=== PATIENT | female | born 1940 | race Caucasian/White ===

== ENCOUNTER 2023-02-01 11:00 | Outpatient (RCR) | payer MEDICARE, SELFPAY ==
--- NOTE | 2023-02-01 11:45 | MHC.OT.DC ---
[address] [phone] F: [phone] Occupational Therapy Discharge Note Patient Name: Lily Rodriguez Provider: Teetee Albarran Diagnosis: Left DR hayden Date of Surgery: Date of Evaluation: 01/23/23 Date of Discharge: 02/01/23 Treatments to Date: 2 Cancellations to Date: 0 No Shows to Date: 0 Discharge Status: Achieved Goals Improved Function Independent with HEP Discharge Summary: Pt is independent with her HEP strengthening program and reports improved pain and function. She has resumed gardening with full use of her left hand. Pt reports she feels confident she will continue to increase in strength with her HEP Goals met Electronically Signed By: Basia Ely OT CHT CLT Reviewed/agree with student documentation: Therapist: Please Sign and return to therapist, thank you for your referral.
== END 2023-02-01 11:46 | disposition home or self-care (01) ==
LOC: HO.OT 11:00
PROVIDERS: Visit Provider Physician Assistant
DX: S52.502D Unspecified fracture of the lower end of left radius, subsequent encounter for closed fracture with routine healing (principal)
CPT/HCPCS: 97110; 97165

== ENCOUNTER 2023-10-01 09:07 | Inpatient (IN) | payer MEDICARE, SELFPAY ==
[2023-10-01] VITALS (11 sets, daily range): BP systolic 111–167; BP diastolic 60–103; PULSE 66–133; RESP 18–20; TEMP 36.6–36.8; O2SAT 96–99; BMI 22.5
--- NOTE | ~2023-10-01 | XR_ITS ---
EXAMINATION: XR CHEST CLINICAL INFORMATION: Shortness of breath COMPARISON: None available. TECHNIQUE: AP upright portable view of the chest was obtained. 11:13 AM FINDINGS: Lung volumes are low. No focal consolidation, interstitial pulmonary edema or pneumothorax. No pleural effusion Heart size is normal. No acute osseous abnormality. XR/XR chest 1V IMPRESSION: No acute cardiopulmonary disease.
--- NOTE | 2023-10-01 09:13 | ECG_ITS ---
Test Reason : afib? Blood Pressure : / mmHG Vent. Rate : 132 BPM Atrial Rate : 264 BPM P-R Int : 000 ms QRS Dur : 080 ms QT Int : 308 ms P-R-T Axes : 000 003 064 degrees QTc Int : 456 ms Atrial flutter with 2:1 A-V conduction Nonspecific ST abnormality Abnormal ECG When compared with ECG of 22-JUN-2013 06:52, Atrial flutter has replaced Sinus rhythm Vent. rate has increased BY 59 BPM Referred By: Generic ED Physician Electronically Signed By:LUIS ALBERTO MCMANUS MD
--- NOTE | 2023-10-01 10:39 | ED_ITS ---
HPI - Arrhythmia/Palpitations General Chief Complaint: Arrhythmia/Palpitations Stated Complaint: AFib Weakness Sent by PCP Time Seen by Provider: 10/01/23 10:06 Source: patient Mode of arrival: ambulatory Limitations: no limitations History of Present Illness HPI narrative: 83-year-old female history of AFib on Xarelto, presenting with some shortness of breath, lightheadedness and palpitations have been ongoing for the past week. Patient reports she is mostly active she walks about a mi a day, however the past week she has been having difficulty with this secondary to palpitations, lightheadedness and shortness of breath. She states she may be in AFib, this is never happened to her before was diagnosed last year. Denies associated chest pain, recent illness, nausea, vomiting, abdominal pain, headache, vision changes, dizziness and weakness. Med compliant. She does also take metoprolol. Related Data Home Medications Medication Instructions Recorded Confirmed calcium carbonate 600 mg calcium 600 mg PO DAILY 10/01/23 10/01/23 (1,500 mg) tablet (Calcium) cholecalciferol (vitamin D3) 50 50 mcg PO DAILY 10/01/23 10/01/23 mcg (2,000 unit) tablet (Vitamin D3) ketorolac 0.5 % eye drops 1 drp ophthalmic-Left DAILY 10/01/23 10/01/23 latanoprost 0.005 % eye drops 1 drp ophthalmic (eye) BEDTIME 10/01/23 10/01/23 levothyroxine 50 mcg tablet 50 mcg PO DAILY@0600 10/01/23 10/01/23 metoprolol succinate 25 mg 25 mg PO DAILY@1600 10/01/23 10/01/23 tablet,extended release 24 hr [id number] 8 mg-folic 400 1 tab PO DAILY 10/01/23 10/01/23 mcg-K 50 mcg-lutein 300 mcg tablet (Centrum Silver Women) rivaroxaban 20 mg tablet (Xarelto) 20 mg PO DAILY@1600 10/01/23 10/01/23 Allergies Allergy/AdvReac Type Severity Reaction Status Date / Time No Known Allergies Allergy Verified 10/01/23 09:30 Review of Systems 2 Review of Systems: Yes all other systems are reviewed and are negative PMFSH Past Medical History Attestation statement: The following information was validated with the patient. Source: old records reviewed and nursing notes reviewed Onset Date is defined in the Problem List Problems that require an onset date and time if occurred within 24 hrs of arrival to the ED Aortic Dissection and Rupture; Neurologic impairment; Cardiopulmonary Arrest; Endotracheal Intubation; Insertion or Replacement of Mechanical Circulatory Assist Device Social History Social History Smoked in Last 30 Days: No Use of substances other than those prescribed or required for medical reasons: No Advance Directives: Yes Advance Directives Information Provided: Yes Advance Directives on File: No Physical Exam 2 Vital Signs: Vital Signs: Last Vital Signs Temp 98 F 10/01/23 09:30 Pulse 131 H 10/01/23 13:48 Resp 20 10/01/23 13:48 BP 159/97 H 10/01/23 13:48 Pulse Ox 97 10/01/23 13:48 O2 Del Method Room Air 10/01/23 13:48 BMI result Body Mass Index 22.5 patient noted to be tachy and hTN Appearance: Alert.? Oriented X3.? No acute distress.? Head: Normocephalic, atraumatic, no step-offs or deformities Eyes: Pupils equal, round and reactive to light.? ENT: Pharynx normal.? Neck: Normal inspection.? Neck supple.? CVS: Rapid heart rate with a rate around 130 140 irregularly irregular rhythm..? Pulses equal and irregularly irregular.? Respiratory: No respiratory distress.? Breath sounds normal.? Abdomen: Soft and nontender.? Skin: Skin warm and dry.? Normal skin color.? Normal skin turgor.? Extremities: No lower extremity edema.? No calf ttp. 5/5 strength to bilateral upper and lower extremities Back: No midline tenderness, no C-spine tenderness, full range of motion, no CVA tenderness bilaterally Neuro: Oriented X 3.? No motor deficit.? No sensory deficit. CN 2-12 intact Course Reevaluation(s) Reevaluation #1: CBC with microcytic anemia, no reports of acute bleeding however, no previous labs to compare with. No blood in stool. Coags unremarkable. Chemistry pending. Cardizem given patients heart rate went from 133 bpm --> 62 bpm. Time: 10:52 Reevaluation #2: Repeat EKG w/ NSR. Patient feeling better. Cardiology aware of this. They will come down and talk to patient. Patient's heart rate increased again, Cardizem was ordered Time: 11:04 Reevaluation #3: Cardiology would like PRN cardizem if needed but would like Multaq PO BID hospital admission recommended. Patient aware. TT to hospitalist at this time. Time: 12:51 Medications Administered Discontinued Medications Generic Name Dose Route Start Last Admin Trade Name Freq PRN Reason Stop Dose Admin Diltiazem HCl 10 mg 10/01/23 10:13 10/01/23 10:49 Diltiazem Hcl 50 Mg/10 Ml Vial IVPUSH 10/01/23 10:14 10 mg STAT STA Administration Diltiazem HCl 10 mg 10/01/23 11:57 10/01/23 12:06 Diltiazem Hcl 50 Mg/10 Ml Vial IVPUSH 10/01/23 11:58 10 mg STAT STA Administration Dronedarone 400 mg 10/01/23 12:32 10/01/23 13:56 Dronedarone Hcl 400 Mg Tablet PO 10/01/23 12:33 400 mg ONCE ONE Administration Sodium Chloride 500 mls @ 500 mls/hr 10/01/23 12:00 10/01/23 13:36 Ns IV 10/01/23 12:59 Infused .Q1H JEREMIAS Infusion Medical Decision Making Medical Decision Making [facility] Narrative: 83-year-old female presents with palpitations and dizziness history of AFib on Xarelto Physical exam significant for Rapid heart rate with a rate around 130 140 irregularly irregular rhythm..? Pulses equal and irregularly irregular.? History and physical exam concerning for possible acute atrial fibrillation versus atrial flutter versus dysrhythmia. Unlikely PE she is anticoagulated. Unlikely ACS, dissection, pneumonia. Will rule out metabolic derangements although unlikely Plan labs, imaging, EKG. Differential Diagnosis Differential Diagnoses: The differential diagnosis associated with the presentation includes History and physical exam concerning for possible acute atrial fibrillation versus atrial flutter versus dysrhythmia. Unlikely PE she is anticoagulated. Unlikely ACS, dissection, pneumonia. Will rule out metabolic derangements although unlikely Admission/Observation Consideration of admission/observation: Escalation of care including admission/observation considered Possible Lab Data [facility] Lab Attestation statement: I reviewed the patient's lab results. 10/01/23 10:34 01/09/24 10:34 Labs: Lab Results 10/01/23 Range/Units 10:34 WBC 8.5 (4.8-10.8) X10*3/uL RBC 5.30 (4.20-5.50) X10*6/uL Hgb 10.2 L (12.0-16.0) g/dl Hct 33.0 L (37.0-47.0) % MCV 62.3 L (80.0-98.0) fL MCH 19.2 L (27.0-33.0) pg MCHC 30.9 L (31.0-35.0) g/dl RDW 17.4 H (11.0-16.0) % Plt Count 241 (160-400) X10*3/uL MPV 10.7 (9.4-12.3) fL Immature Gran % (Auto) 0.4 (0.0-0.4) % Neut % (Auto) 87.6 H (45-73) % Lymph % (Auto) 6.0 L (20-40) % [place] % (Auto) 5.1 (2-11) % Eos % (Auto) 0.5 (0-4) % Baso % (Auto) 0.4 (0-2) % Lymph # (Auto) 0.5 L (1.2-4.9) X10*3/uL [place] # (Auto) 0.4 (0.1-1.2) X10*3/uL Eos # (Auto) 0.0 (0.0-0.4) X10*3/uL Baso # (Auto) 0.0 (0.0-0.2) X10*3/uL Abs Immat Gran (auto) 0.03 (0.00-0.03) X10*3/uL Absolute Neuts (auto) 7.4 (2.0-8.3) x10*3/uL Absolute Nucleated RBC 0.000 (0.0-0.012) X10*3/uL Nucleated RBC % (auto) 0.0 (0.0-0.2) /100WBC PT 13.8 H (11.1-13.3) SEC INR 1.1 (0.9-1.1) D-Dimer High Sensitivty Cancelled Sodium 138 (135-145) mmol/L Potassium 4.4 (3.3-5.1) mmol/L Chloride 103 (96-108) mmol/L Carbon Dioxide 29 (22-29) mmol/L Anion Gap 10 L (12-20) BUN 24 H (9-16) mg/dL Creatinine 0.94 (0.5-1.4) mg/dL Estim Creat Clear Calc 31.4 Estimated GFR 57 Random Glucose 119 H (60-115) mg/dL Calcium 9.9 (8.4-10.2) mg/dL Magnesium 2.1 (1.6-2.6) mg/dL Total Bilirubin 0.6 (0.0-1.0) mg/dL AST 23 (5-31) U/L ALT 15 (0-31) U/L Alkaline Phosphatase 78 (39-117) U/L Troponin I High Sens 6.3 (<3.5-17.0) ng/L B-Natriuretic Peptide 317 H (<100) pg/mL Total Protein 7.8 (6.5-8.0) g/dL Albumin 4.4 (3.5-5.0) g/dL Independent Interpretation I performed an independent interpretation of an: EKG (Atrial flutter noted in a 2-1 fashion.) and Plain X-Ray Radiology Impression Discussion of test interpretation with radiology: I have reviewed the radiologist's reading. Chronic Conditions Patient?s care impacted by: Other (afib ) Critical Care Time Critical Care Time Critical Care Time: Yes Total Critical Care Time: 45 Attestation: I attest to this time spent taking care of the patient, obtaining history, physical, reviewing labs, imaging, speaking to my attending, speaking to specialist. Discharge Plan Discharge Clinical Impression: Atrial flutter, Hypertension Patient Disposition: Admitted As Inpatient Additional Instructions: Take your medications as prescribed. If you were prescribed antibiotics today, it is important that you take your medication to their entirety, do not skip any doses, do not finish them early. Follow-up with your primary care provider this week. Return to the emergency department with new or worsening symptoms. Such as fevers, chills, chest pain, shortness of breath, nausea, vomiting, dizziness, headache, vision changes, lethargy In case of emergency call 911
[2023-10-01 10:40] LABS: MANUAL DIFF FLAG NO
[2023-10-01 10:45] LABS: Basophils Percent Auto 0.4 % (0-2); Eosinophils Percent Auto 0.5 % (0-4); Hemoglobin 10.2 g/dl (12.0-16.0); Imm Gran Abs Auto 0.03 X10*3/uL (0.00-0.03); Imm Gran Pct Auto 0.4 % (0.0-0.4); Lymphocytes Absolute Auto 0.5 X10*3/uL (1.2-4.9); Mean Corpuscular HGB Conc 30.9 g/dl (31.0-35.0); Mean Corpuscular Hemoglobin 19.2 pg (27.0-33.0); Mean Corpuscular Volume 62.3 fL (80.0-98.0); Mean Platelet Volume 10.7 fL (9.4-12.3); Monocytes Absolute Auto 0.4 X10*3/uL (0.1-1.2); Monocytes Percent Auto 5.1 % (2-11); Neutrophils Absolute Auto 7.4 x10*3/uL (2.0-8.3); Neutrophils Percent Auto 87.6 % (45-73); Platelet Count 241 X10*3/uL (160-400); Red Cell Distribution Width 17.4 % (11.0-16.0); White Blood Count 8.5 X10*3/uL (4.8-10.8)
[2023-10-01 10:47] LABS: INTERNATIONAL NORM RATIO 1.1 (0.9-1.1); Prothrombin Time 13.8 SEC (11.1-13.3)
[2023-10-01] MEDS: dilTIAZem HCL 50 MG/10 ML VIAL 10 MG IVPUSH ×3 (10:49→15:05)
[2023-10-01 11:10] LABS: Alanine Aminotransferase 15 U/L (0-31); Albumin Level 4.4 g/dL (3.5-5.0); Alkaline Phosphatase 78 U/L (39-117); Anion Gap 10 (12-20); Aspartate Amino Transferase 23 U/L (5-31); Bilirubin Total 0.6 mg/dL (0.0-1.0); Blood Urea Nitrogen 24 mg/dL (9-16); Calcium 9.9 mg/dL (8.4-10.2); Carbon Dioxide 29 mmol/L (22-29); Chloride 103 mmol/L (96-108); Creatinine Clr Calc Pharmacy 31.4; Estimated Glomerular Filt Rate 57; Glucose Random 119 mg/dL (60-115); Magnesium 2.1 mg/dL (1.6-2.6); Potassium 4.4 mmol/L (3.3-5.1); Sodium 138 mmol/L (135-145); Total Protein 7.8 g/dL (6.5-8.0)
[2023-10-01 11:12] LABS: Troponin-I High Sensitivity 6.3 ng/L (<3.5-17.0)
[2023-10-01 11:21] LABS: B Type Natriuretic Peptide 317 pg/mL (<100)
[2023-10-01] MEDS: 0.9 % Sodium Chloride 500 ML IV (12:07)
--- NOTE | 2023-10-01 12:10 | PC.NURSE ---
Pt given additional Cardizem 10mg IVP, HR back up to 120s. Pt states SOB is mild compared to on arrival and reports some lightheadedness. Denies CP or palpitations. SKin pwd. Breathing is even and unlabored. Awaits cardio consult.
--- NOTE | 2023-10-01 13:35 | P.CONCA_ITS ---
History of Present Illness History of Present Illness Date of Service: 10/01/23 Requesting physician: Ronen Gomez Consult reason: atrial fibrillation Chief complaint: AFib Weakness Sent by PCP Narrative: I was consulted to see Kirsten Vegas in cardiology consultation today for symptomatic atrial fibrillation. She is a pleasant and active 83-year-old woman with prior history of hypertension for long time last year was admitted to [facility] with fall related lightheadedness and question syncope associated with a fracture. She was subsequently treated for that and developed atrial fibrillation. At that time she was on metoprolol amlodipine and amlodipine was discontinued and she was started on initially Eliquis but did not tolerated and subsequently switched to Xarelto 20 mg daily. She has been maintained on metoprolol 25 mg daily. For about a week she has been having symptoms of rapid heart rate she noted with her blood pressure monitoring. She also noted associated with it symptoms of rapid heart rate and strong heartbeat associated with lightheadedness. She has not had any recurrent syncopal episodes. Symptoms persistent therefore she came to the emergency room. Initially when she came to the emergency room her EKG was suggestive atrial flutter with 2 is to 1 conduction with rapid ventricular rate. She was subsequently given IV Cardizem and felt that she converted to sinus rhythm although repeat EKG is most suggestive of atrial flutter with controlled ventricular response. She subsequently the rapid heart rate and symptoms associated with it. Cardiology consult was sought in the ED. She remains hypertensive in the ED. Denies any chest pain or shortness of breath. No orthopnea, PND. No syncopal episodes. She has been religiously taking a Xarelto every day. Review of Systems 2 Constitutional: Constitutional: Reports no additional constitutional complaints Eyes: Eyes: Reports no additional eye complaints Cardiovascular: Cardiovascular: Denies chest pain, Denies leg edema, Reports lightheadedness, Denies Loss of Consciousness, Reports palpitations and Denies dyspnea Respiratory: Respiratory: Reports no additional respiratory complaints and Denies dyspnea Gastrointestinal: Gastrointestinal: Reports no additional gastrointestinal complaints Genitourinary: Genitourinary: Reports no additional female genitourinary complaints Musculoskeletal: Musculoskeletal: Reports no additional musculoskeletal complaints Neurologic: Reports system reviewed and no additional complaints, except as documented Psychiatric: Psychiatric: Reports no additional psychiatric complaints Endocrine: Endocrine: Reports palpitations PMFSH Social History Social History Smoked in Last 30 Days: No Use of substances other than those prescribed or required for medical reasons: No Advance Directives: Yes Advance Directives Information Provided: Yes Advance Directives on File: No Meds Allergies Allergy/AdvReac Type Severity Reaction Status Date / Time No Known Allergies Allergy Verified 10/01/23 09:30 Active Medications: Current Medications Dronedarone (Dronedarone Hcl 400 Mg Tablet) 400 mg PO BID JEREMIAS Home Medications Medication Instructions Recorded Confirmed Last Taken Type calcium carbonate 600 mg calcium 600 mg PO DAILY 10/01/23 10/01/23 09/30/23 History (1,500 mg) tablet (Calcium) cholecalciferol (vitamin D3) 50 50 mcg PO DAILY 10/01/23 10/01/23 09/30/23 History mcg (2,000 unit) tablet (Vitamin D3) ketorolac 0.5 % eye drops 1 drp ophthalmic-Left DAILY 10/01/23 10/01/23 09/30/23 History latanoprost 0.005 % eye drops 1 drp ophthalmic (eye) BEDTIME 10/01/23 10/01/23 09/30/23 History levothyroxine 50 mcg tablet 50 mcg PO DAILY@0600 10/01/23 10/01/23 10/01/23 History metoprolol succinate 25 mg 25 mg PO DAILY@1600 10/01/23 10/01/23 09/30/23 History tablet,extended release 24 hr mqulwsiu-bogj-bzzz 8 mg-folic 400 1 tab PO DAILY 10/01/23 10/01/23 09/30/23 History mcg-K 50 mcg-lutein 300 mcg tablet (Centrum Silver Women) rivaroxaban 20 mg tablet (Xarelto) 20 mg PO DAILY@1600 10/01/23 10/01/23 09/30/23 History Physical Exam 2 Vital Signs: Vital Signs: Last Vital Signs Temp 98 F 10/01/23 09:30 Pulse 124 H 10/01/23 12:07 Resp 20 10/01/23 12:07 BP 148/103 H 10/01/23 12:07 Pulse Ox 99 10/01/23 12:07 O2 Del Method Room Air 10/01/23 12:07 BMI result Body Mass Index 22.5 Const: General: cooperative, comfortable, no acute distress, alert, awake and anxious Nutritional Appearance: thin Orientation/consciousness: patient oriented x3 Limitations: no limitations HEENT: Head: Yes normocephalic and Yes atraumatic Neck: Neck: Yes trachea midline, Yes supple and Yes no JVD Resp: Effort & Inspection: normal respiratory effort Auscultation: clear to auscultation bilaterally Cardio: Jugular venous distension: no JVD Rate: tachycardic Rhythm: a bnormal rhythm irregularly irregular Heart sounds: S1 normal heart sound present, S2 normal heart sound present, no click, no gallops, no murmurs and no rubs GI: Auscultation: normal bowel sounds Skin: General skin exam: no rashes or lesions noted Neuro: General: patient oriented x3 and no focal motor deficits Extrem: General: Yes no clubbing, cyanosis or edema Objective Labs and Meds 10/01/23 10:34 10/01/23 10:34 Lab results: Laboratory Results - last 24 hr 10/01/23 10:34 WBC 8.5 RBC 5.30 Hgb 10.2 L Hct 33.0 L MCV 62.3 L MCH 19.2 L MCHC 30.9 L RDW 17.4 H Plt Count 241 MPV 10.7 Immature Gran % (Auto) 0.4 Neut % (Auto) 87.6 H Lymph % (Auto) 6.0 L [place] % (Auto) 5.1 Eos % (Auto) 0.5 Baso % (Auto) 0.4 Lymph # (Auto) 0.5 L [place] # (Auto) 0.4 Eos # (Auto) 0.0 Baso # (Auto) 0.0 Abs Immat Gran (auto) 0.03 Absolute Neuts (auto) 7.4 Absolute Nucleated RBC 0.000 Nucleated RBC % (auto) 0.0 PT 13.8 H INR 1.1 D-Dimer High Sensitivty Cancelled Sodium 138 Potassium 4.4 Chloride 103 Carbon Dioxide 29 Anion Gap 10 L BUN 24 H Creatinine 0.94 Estim Creat Clear Calc 31.4 Estimated GFR 57 Random Glucose 119 H Calcium 9.9 Magnesium 2.1 Total Bilirubin 0.6 AST 23 ALT 15 Alkaline Phosphatase 78 Troponin I High Sens 6.3 B-Natriuretic Peptide 317 H Total Protein 7.8 Albumin 4.4 Imaging Radiologist's impression: Impressions Chest X-Ray 10/01/23 11:16 IMPRESSION: No acute cardiopulmonary disease. Assessment and Plan (1) Atrial fibrillation with rapid ventricular response: Status: Acute Patient present with recent onset recurrent atrial fibrillation rapid ventricular response most likely persistent over the last week or 2. No unsure whether she was converted back into normal sinus rhythm in between. No overt signs of heart failure although appears to be clinically very symptomatic related to it. Heart rate improved with IV Cardizem although has climbed back up again and was given another Cardizem with better rate control. For now I think given her symptoms she would benefit from rhythm control approach. Will start on Multaq 400 mg b.i.d. given that she has no signs or symptoms of heart failure with no prior history of LV systolic dysfunction. Hopefully this will get her back into sinus rhythm. If she remains in atrial fibrillation, will pursue synchronized cardioversion tomorrow. This was discussed with her in details. Management plan was discussed. She understands agrees. Can use IV Cardizem p.r.n. for better rate control. Stop metoprolol and switch to amlodipine 2.5 mg daily for blood pressure control. Continue oral anticoagulation with Xarelto at this point time. Patient needs to be admitted inpatient. Will follow with her Procedures Date of Service Date of Service: 10/01/23
--- NOTE | 2023-10-01 13:35 | PHA.MEDREC ---
Pharmacy Consult ? Medication Reconciliation Pharmacy has completed the medication reconciliation. Spoke to patient to confirm meds.
[2023-10-01] MEDS: Dronedarone HCl 400 MG TABLET PO ×2 (13:56→21:54)
--- NOTE | 2023-10-01 14:20 | ECG_ITS ---
Test Reason : AFIB Blood Pressure : / mmHG Vent. Rate : 066 BPM Atrial Rate : 000 BPM P-R Int : 000 ms QRS Dur : 080 ms QT Int : 408 ms P-R-T Axes : 000 -05 032 degrees QTc Int : 427 ms Poor data quality Possible Accelerated Junctional rhythm Abnormal ECG When compared with ECG of 01-OCT-2023 09:17, Accelerated Junctional rhythm has replaced Atrial flutter Vent. rate has decreased BY 66 BPM Referred By: Ronen Gomez Electronically Signed By:LUIS ALBERTO MCMANUS MD
--- NOTE | 2023-10-01 14:42 | PM.IMHP ---
History of Present Illness Date of Service: 10/01/23 Chief Complaint: Palpitations 83-year-old female patient with past medical history significant for atrial fibrillation on Xarelto, history of hypothyroidism, presented to [facility] due to symptoms of lightheadedness, shortness of breath and palpitation of 1 week duration, restricting her activity she denies a Surgi associated chest pain, no syncope, is compliant with home medications drinks 3 cup of coffee daily and 2 cups of decaf tea, denies alcohol ,no illicit drug use,, denies recent fever chills, no GI symptoms in the emergency room patient was noted in atrial flutter treated with IV Cardizem 10 mg heart rate improved to 62, but patient went back into atrial flutter with rapid rate receive 2nd dose of iv Cardizem 10 mg subsequently seen by cheese production supervisor Dr. Gray and started on Multaq 400 mg twice daily patient received 1 dose of Multaq and again noted to be in atrial flutter heart rate in 130s at present patient denies chest pain, no lightheadedness, no palpitations or shortness of breath he is being admitted to telemetry unit for continued monitoring of symptomatic atrial flutter, chest x-ray showed no acute infiltrate CBC and BMP unremarkable, BNP elevated but patient in no clinical CHF. Review of Systems Review of Systems: General no headache,no fever chills. CVS no chest pain, palpitation resolved . Respiratory no cough, no uri Gastrointestinal no nausea, no vomiting, no abdominal pain Skin no rash MSk no pain PMFSH Pertinent family history: Father at age 65 due to heart, no family history of cancer or premature coronary artery disease Social History Smoked in Last 30 Days: No Use of substances other than those prescribed or required for medical reasons: No Advance Directives: Yes Advance Directives Information Provided: Yes Advance Directives on File: No Meds Allergies Allergy/AdvReac Type Severity Reaction Status Date / Time No Known Allergies Allergy Verified 10/01/23 09:30 Active Medications: Current Medications Acetaminophen (Acetaminophen 325 Mg Tablet) 650 mg PO Q6H PRN PRN Reason: Pain, Mild (Pain Scale 1-3) Benzonatate (Benzonatate 100 Mg Capsule) 100 mg PO TID PRN PRN Reason: Cough Docusate Sodium (Docusate Sodium 100 Mg Capsule) 100 mg PO DAILY PRN PRN Reason: Constipation Dronedarone (Dronedarone Hcl 400 Mg Tablet) 400 mg PO BID [facility] Ketorolac Tromethamine (Ketorolac Tromethamine 0.5% Op 5 Ml Drops) 1 drop EYE-LEFT DAILY [facility] Latanoprost (Latanoprost 0.005 % Ophth Johnna 2.5 Ml Drops) 1 drop EYE-BOTH BEDTIME [facility] Levothyroxine Sodium (Levothyroxine Sodium 50 Mcg Tablet) 50 mcg PO DAILY@0600 [facility] Magnesium Hydroxide (Milk Of Magnesia 30 Ml Oral.Susp) 30 ml PO DAILY PRN PRN Reason: Constipation Melatonin (Melatonin 3 Mg Tablet) 3 mg PO BEDTIME PRN PRN Reason: Insomnia Multivitamins/Vitamin C (Multivitamin Tablet) 1 tab PO DAILY [facility] Ondansetron HCl (Ondansetron Hcl 4 Mg/2 Ml Vial) 4 mg IVPUSH Q8H PRN PRN Reason: Nausea and Vomiting Rivaroxaban (Rivaroxaban 20 Mg Tablet) 20 mg PO DAILY@1600 [facility] Sodium Chloride (0.9 % Sodium Chloride Flush 3 Ml Syringe) 3 ml IVFLUSH QSHIFT [facility] Vitamin D (Cholecalciferol (Vitamin D3) 25 Mcg Tablet) 50 mcg PO DAILY [facility] Home Medications Medication Instructions Recorded Confirmed Last Taken Type calcium carbonate 600 mg calcium 600 mg PO DAILY 10/01/23 10/01/23 09/30/23 History (1,500 mg) tablet (Calcium) cholecalciferol (vitamin D3) 50 50 mcg PO DAILY 10/01/23 10/01/23 09/30/23 History mcg (2,000 unit) tablet (Vitamin D3) ketorolac 0.5 % eye drops 1 drp ophthalmic-Left DAILY 10/01/23 10/01/23 09/30/23 History latanoprost 0.005 % eye drops 1 drp ophthalmic (eye) BEDTIME 10/01/23 10/01/23 09/30/23 History levothyroxine 50 mcg tablet 50 mcg PO DAILY@0600 10/01/23 10/01/23 10/01/23 History metoprolol succinate 25 mg 25 mg PO DAILY@1600 10/01/23 10/01/23 09/30/23 History tablet,extended release 24 hr [id number] 8 mg-folic 400 1 tab PO DAILY 10/01/23 10/01/23 09/30/23 History mcg-K 50 mcg-lutein 300 mcg tablet (Centrum Silver Women) rivaroxaban 20 mg tablet (Xarelto) 20 mg PO DAILY@1600 10/01/23 10/01/23 09/30/23 History Physical Exam Vital Signs and Narrative: Vital Signs: Last Vital Signs Temp 98 F 10/01/23 09:30 Pulse 131 H 10/01/23 13:48 Resp 20 10/01/23 13:48 BP 159/97 H 10/01/23 13:48 Pulse Ox 97 10/01/23 13:48 O2 Del Method Room Air 10/01/23 13:48 BMI result Body Mass Index 22.5 Const: Other: General awake alert x3, resting comfortably in no acute distress. Neck supple no JVD. CVS irregular rate rhythm, Respiratory lungs clear to auscultation, no respiratory distress, no wheeze, no rhonchi. Gastrointestinal abdomen soft, non tender, bowel sounds audible, no no guarding , no rigidity. Extremities no edema. Neuro nonfocal Skin no rash Psych appropriate affect Results Labs 10/01/23 10:34 10/01/23 10:34 Labs: Laboratory Results - last 24 hr 10/01/23 10:34 MCV 62.3 L MCH 19.2 L MCHC 30.9 L RDW 17.4 H Plt Count 241 MPV 10.7 Immature Gran % (Auto) 0.4 Neut % (Auto) 87.6 H Lymph % (Auto) 6.0 L [place] % (Auto) 5.1 Eos % (Auto) 0.5 Baso % (Auto) 0.4 Lymph # (Auto) 0.5 L [place] # (Auto) 0.4 Eos # (Auto) 0.0 Baso # (Auto) 0.0 Abs Immat Gran (auto) 0.03 Absolute Neuts (auto) 7.4 Absolute Nucleated RBC 0.000 Nucleated RBC % (auto) 0.0 PT 13.8 H INR 1.1 D-Dimer High Sensitivty Cancelled Anion Gap 10 L Estim Creat Clear Calc 31.4 Estimated GFR 57 Random Glucose 119 H Calcium 9.9 Magnesium 2.1 Total Bilirubin 0.6 AST 23 ALT 15 Alkaline Phosphatase 78 B-Natriuretic Peptide 317 H Total Protein 7.8 Albumin 4.4 Imaging Radiologist's Impressions: Impressions Chest X-Ray 10/01/23 11:16 IMPRESSION: No acute cardiopulmonary disease. Assessment and Plan (1) Atrial fibrillation with rapid ventricular response: Status: Acute (2) Hypertension: Status: Acute Plan 83-year-old female patient presented with symptoms of shortness of breath palpitations and lightheadedness and diagnosed to be in atrial fibrillation with rapid ventricular response will admit to telemetry unit. Symptomatic atrial fibrillation/flutter History of paroxysmal atrial fibrillation on Xarelto Treated with IV Cardizem 10 mg x3 dosages , noted to have persistent atrial fibrillation/continue Xarelto Will place on IV Cardizem drip, continue telemetry Seen by Cardiology started on Multaq 400 b.i.d. Follow electrolytes, TSH Cardioversion if noted to have persistent rapid ventricular rate. Hypothyroidism continue Synthroid check TSH Hypertension placed on IV Cardizem follow BP hold beta-blockers. Code status full code DVT prophylaxis on Xarelto In my clinical judgment patient need 2 night inpatient hospitalization for management of symptomatic atrial fib/flutter for close telemetry monitoring and possible cardioversion if Noted to have no response with medications. Quality Stroke Does the patient have a stroke diagnosis?: No VTE Prior VTE?: No VTE Risk Level:: Medical - moderate - high VTE Device Contraindication: Treatment Not Indicated VTE Drug Contraindication: N/A - Med Ordered
--- NOTE | 2023-10-01 15:07 | PC.NURSE ---
Pt reports no cp at this time, resting in stretcher, awaiting inpatient bed. hr 66 after admin of 10mg of dilt.
[2023-10-01 15:14] LABS: Thyroid Stimulating Hormone 2.59 uIU/mL (0.32-4.0)
[2023-10-01] MEDS: Rivaroxaban 20 MG TABLET PO (15:23)
[2023-10-01] MEDS: 0.9 % Sodium Chloride Flush 3 ML SYRINGE IVFLUSH (15:48)
--- NOTE | 2023-10-01 16:00 | PC.NURSE ---
Addendum entered by Karina Mcdaniels 10/01/23 19:09: Pt maintaining hr less than 120hr, dilt drip not started. Original Note: Pt maintaining hr less than 120hr.
--- NOTE | 2023-10-01 17:23 | MHC.SHP ---
Pre-Procedural Eval Section A Date of Service: 10/01/23 The patient is an INPATIENT: Yes Changes since office visit: Yes Changes in Medication and Yes Patient answered all questions; No Cold of Flu in the past 2 weeks and No New Medical Problems The History & Physical has been completed within 30 days and I have reviewed it.: Yes Section B Chief Complaint: Atrial flutter with RVR Allergies: Allergies Allergy/AdvReac Type Severity Reaction Status Date / Time No Known Allergies Allergy Verified 10/01/23 09:30 Plan I have reviewed the history and physical and performed a pertinent physical examination on my patient. No changes have occurred unless specified. Time Spent With Patient Time: Total time managing care of this patient today ____ minutes.
--- NOTE | 2023-10-01 19:20 | PC.NURSE ---
This script writer assumed care of this Pt at 1900. Pt A&Ox4, denies any CP, palpitations or SOB. Pt ambulated to BR with steady gait. Pt reports slight improvement of SOB.
[2023-10-01] MEDS: Acetaminophen 325 MG TABLET 650 MG PO (21:54)
[2023-10-01] MEDS: Latanoprost 0.005 % Ophth Sol 2.5 ML DROPS 1 DROP EYE-BOTH (21:54)
--- NOTE | 2023-10-01 23:20 | PC.NURSE ---
Pt HR maintaining in the 100-110s, Confirming with Dr. Calvert Cardizem not needed at this time.
[2023-10-02] VITALS (10 sets, daily range): BP systolic 105–146; BP diastolic 59–89; PULSE 69–120; RESP 11–22; TEMP 36.2–37.2; O2SAT 96–100; BMI 22.5
[2023-10-02] MEDS: 0.9 % Sodium Chloride Flush 3 ML SYRINGE IVFLUSH (00:55)
--- NOTE | 2023-10-02 04:25 | PC.NURSE ---
Pt awake, ambulated independent to bedside commode.
[2023-10-02] MEDS: Levothyroxine Sodium 50 MCG TABLET PO (05:44)
--- NOTE | 2023-10-02 07:25 | PC.NURSE ---
report given to short stay - states that they will come retrieve pt in the ED shortly.
--- NOTE | 2023-10-02 07:43 | PC.NURSE ---
pt to short stay at this time.
--- NOTE | 2023-10-02 08:28 | P.CONAN_ITS ---
[facility] Active Problems Active Problems: All Active Problems (Updated 10/02/23 @ 08:08 by Ana Maria Kaiser RN) Atrial fibrillation with rapid ventricular response (Acute) Hypertension (Acute) Atrial flutter (Acute) Past Medical History Medical History (Updated 10/02/23 @ 08:08 by Ana Maria Kaiser RN) Hypertension Hypothyroid Family History Family history of problems with anesthesia: No Surgical History Surgical History (Updated 10/02/23 @ 08:07 by Ana Maria Kaiser RN) Hx of cholecystectomy Status post-operative repair of hip fracture History of Problems with Anesthesia: No Social History Social History Patient Tobacco Use Status: Never used Tobacco Smoked in Last 30 Days: No Use of substances other than those prescribed or required for medical reasons: No Are you DNR?: No Advance Directives: No Advance Directives Information Provided: No Advance Directives on File: No Meds Allergies Allergy/AdvReac Type Severity Reaction Status Date / Time No Known Allergies Allergy Verified 10/02/23 08:01 Active Medications: Current Medications Acetaminophen (Acetaminophen 325 Mg Tablet) 650 mg PO Q6H PRN PRN Reason: Pain, Mild (Pain Scale 1-3) Last Admin: 10/01/23 21:54 Dose: 650 mg Benzonatate (Benzonatate 100 Mg Capsule) 100 mg PO TID PRN PRN Reason: Cough Docusate Sodium (Docusate Sodium 100 Mg Capsule) 100 mg PO DAILY PRN PRN Reason: Constipation Dronedarone (Dronedarone Hcl 400 Mg Tablet) 400 mg PO BID [facility] Last Admin: 10/01/23 21:54 Dose: 400 mg Diltiazem HCl 125 mg/ Sodium (Chloride) 125 mls @ 0 mls/hr IVCONT .Q0M [facility]; Protocol Ketorolac Tromethamine (Ketorolac Tromethamine 0.5% Op 5 Ml Drops) 1 drop EYE- LEFT DAILY [facility] Latanoprost (Latanoprost 0.005 % Ophth Johnna 2.5 Ml Drops) 1 drop EYE-BOTH BEDTIME [facility] Last Admin: 10/01/23 21:54 Dose: 1 drop Levothyroxine Sodium (Levothyroxine Sodium 50 Mcg Tablet) 50 mcg PO DAILY@0600 [facility] Last Admin: 10/02/23 05:44 Dose: 50 mcg Magnesium Hydroxide (Milk Of Magnesia 30 Ml Oral.Susp) 30 ml PO DAILY PRN PRN Reason: Constipation Melatonin (Melatonin 3 Mg Tablet) 3 mg PO BEDTIME PRN PRN Reason: Insomnia Multivitamins/Vitamin C (Multivitamin Tablet) 1 tab PO DAILY [facility] Ondansetron HCl (Ondansetron Hcl 4 Mg/2 Ml Vial) 4 mg IVPUSH Q8H PRN PRN Reason: Nausea and Vomiting Rivaroxaban (Rivaroxaban 20 Mg Tablet) 20 mg PO DAILY@1600 [facility] Last Admin: 10/01/23 15:23 Dose: 20 mg Sodium Chloride (0.9 % Sodium Chloride Flush 3 Ml Syringe) 3 ml IVFLUSH QSHIFT [facility] Last Admin: 10/02/23 00:55 Dose: 3 ml Vitamin D (Cholecalciferol (Vitamin D3) 25 Mcg Tablet) 50 mcg PO DAILY [facility] Home Medications Medication Instructions Recorded Confirmed Last Taken Type calcium carbonate 600 mg calcium 600 mg PO DAILY 10/01/23 10/01/23 09/30/23 History (1,500 mg) tablet (Calcium) cholecalciferol (vitamin D3) 50 50 mcg PO DAILY 10/01/23 10/01/23 09/30/23 History mcg (2,000 unit) tablet (Vitamin D3) ketorolac 0.5 % eye drops 1 drp ophthalmic-Left DAILY 10/01/23 10/01/23 09/30/23 History latanoprost 0.005 % eye drops 1 drp ophthalmic (eye) BEDTIME 10/01/23 10/01/23 09/30/23 History levothyroxine 50 mcg tablet 50 mcg PO DAILY@0600 10/01/23 10/01/23 10/01/23 History metoprolol succinate 25 mg 25 mg PO DAILY@1600 10/01/23 10/01/23 09/30/23 History tablet,extended release 24 hr [id number]-tovw-rglg 8 mg-folic 400 1 tab PO DAILY 10/01/23 10/01/23 09/30/23 Hist ory mcg-K 50 mcg-lutein 300 mcg tablet (Centrum Silver Women) rivaroxaban 20 mg tablet (Xarelto) 20 mg PO DAILY@1600 10/01/23 10/01/23 10/01/23 History Exam Height,Weight and Vital Signs: Height 5 ft Weight 52.163 kg Last Vital Signs Temp 97.1 F 10/02/23 07:59 Pulse 120 H 10/02/23 07:59 Resp 16 10/02/23 07:59 BP 146/89 H 10/02/23 07:59 Pulse Ox 99 10/02/23 07:59 O2 Del Method Room Air 10/02/23 07:59 Pertinent Lab Results Pertinent Lab Results: Laboratory Tests 10/01/23 10:34 WBC 8.5 RBC 5.30 Hgb 10.2 L Hct 33.0 L MCV 62.3 L MCH 19.2 L MCHC 30.9 L RDW 17.4 H Plt Count 241 MPV 10.7 Immature Gran % (Auto) 0.4 Neut % (Auto) 87.6 H Lymph % (Auto) 6.0 L [place] % (Auto) 5.1 Eos % (Auto) 0.5 Baso % (Auto) 0.4 Lymph # (Auto) 0.5 L [place] # (Auto) 0.4 Eos # (Auto) 0.0 Baso # (Auto) 0.0 Abs Immat Gran (auto) 0.03 Absolute Neuts (auto) 7.4 Absolute Nucleated RBC 0.000 Nucleated RBC % (auto) 0.0 PT 13.8 H INR 1.1 D-Dimer High Sensitivty Cancelled Sodium 138 Potassium 4.4 Chloride 103 Carbon Dioxide 29 Anion Gap 10 L BUN 24 H Creatinine 0.94 Estim Creat Clear Calc 31.4 Estimated GFR 57 Random Glucose 119 H Calcium 9.9 Magnesium 2.1 Total Bilirubin 0.6 AST 23 ALT 15 Alkaline Phosphatase 78 Troponin I High Sens 6.3 B-Natriuretic Peptide 317 H Total Protein 7.8 Albumin 4.4 TSH 2.59 Airway Mallampati Class: II TM Dist: >3cm Neck ROM: Full Heart: [email or web address].[email or web address] rate Assessment and Plan Assessment Anesthesia Assessment: Anesthesia Plan Discussed and Chart Reviewed Final Anesthetic Review Family History of Problems with Anesthesia: No History of Problems with Anesthesia: No NPO: Yes ASA Class: III and Emergency Final Preanesthetic Review: No Changes in Pt Med Stat, Meds/Allgs Chart Reviewed, Consent Obtained/Reviewed and Anes Risks/Benef Reviewed Patient Risk: Intermediate Procedure Risk: Intermediate Anesthetic Plan Anesthetic Plan: TIVA Disposition: Standard PACU
--- NOTE | 2023-10-02 08:41 | ECG_ITS ---
Test Reason : post cardioversion Blood Pressure : / mmHG Vent. Rate : 074 BPM Atrial Rate : 074 BPM P-R Int : 172 ms QRS Dur : 084 ms QT Int : 416 ms P-R-T Axes : 085 -12 043 degrees QTc Int : 461 ms Sinus rhythm with Premature supraventricular complexes Otherwise normal ECG When compared with ECG of 01-OCT-2023 10:56, Sinus rhythm has replaced Junctional rhythm Referred By: Sergio Maldonado Electronically Signed By:SERGIO MALDONADO MD
--- NOTE | 2023-10-02 09:13 | MHC.CM.PN ---
Patient is in short stay and unavailable; CM spoke with Son/HCP/Rk @ [phone] and addressed IMM with him (original will be mailed certified letter to Rk and a copy will be placed on the chart). 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 Home self care is the goal and CM has initiated and will follow for dc planning. PCP is Dr. Igor Perry.
--- NOTE | 2023-10-02 09:21 | P.PNCAR_ITS ---
Cardioversion Procedure Note Cardioversion Date of Procedure: Today Ordering Provider: Myself Performing Provider: Myself Indication for Procedure: Perrsistent AF Pre-Op Diagnosis: Same Post-Op Diagnosis: NSR Performed with Transesophageal Echo: No Consent: Verbal and Written consent was obtained from the patient before starting and confriming OAC use. The patient was made aware of the risk of synchronized cardioversion including benefits and alternatives Procedure: After consent obtained, cardioversion pads were attached in AP configurat ion.and the patient was sedated by the anesthesia team. Once adequate sedation achieved, patient was delivered 200J of biphasic energy in AP configuration Complications: None Impression: Successful NSr Recommendations: 1. 12 lead EKG 2. Continue Multaq and Xarelto 3. May d/c home l;ater today and start norvasc 2.5 mg.
--- NOTE | 2023-10-02 09:56 | MHC.CM.PN ---
Patient has been medically cleared for dc to home today, self care.
--- NOTE | 2023-10-02 10:01 | PC.NURSE ---
admission worksheet completed.
--- NOTE | 2023-10-02 10:08 | PM.PNCARD ---
Subjective Subjective Date of Service: 10/02/23 Principal diagnosis: Symptomatic atrial fibrillation Interval history: Patient status post cardioversion. Started on Multaq yesterday. Blood pressure is slightly elevated prior to the procedure. No symptoms related to with no evidence of heart failure. Review of Systems Constitutional: Reports no additional constitutional complaints Cardiovascular: Denies chest pain, Denies Loss of Consciousness, Reports palpitations and Denies dyspnea Respiratory: Reports no additional respiratory complaints and Denies dyspnea Genitourinary: Reports no additional female genitourinary complaints Musculoskeletal: Reports no additional musculoskeletal complaints Psychiatric: Reports no additional psychiatric complaints Endocrine: Reports no additional endocrine complaints and Reports palpitations Physical Exam Vital Signs: Last Vital Signs Temp 97.4 F 10/02/23 09:19 Pulse 69 10/02/23 09:35 Resp 20 10/02/23 09:35 BP 127/60 10/02/23 09:35 Pulse Ox 100 10/02/23 09:35 O2 Del Method Room Air 10/02/23 09:35 O2 Flow Rate 2 10/02/23 09:04 BMI result Body Mass Index 22.5 Const General: cooperative, comfortable, no acute distress, alert, awake and anxious Nutritional Appearance: thin Orientation/consciousness: patient oriented x3 Limitations: no limitations HEENT Head: Yes normocephalic and Yes atraumatic Neck Neck: Yes trachea midline, Yes supple and Yes no JVD Resp Effort & Inspection: normal respiratory effort Auscultation: clear to auscultation bilaterally Cardio Jugular venous distension: no JVD Rate: tachycardic Rhythm: abnormal rhythm irregularly irregular Heart sounds: S1 normal heart sound present, S2 normal heart sound present, no click, no gallops, no murmurs and no rubs GI Auscultation: normal bowel sounds Skin General skin exam: no rashes or lesions noted Neuro General: patient oriented x3 and no focal motor deficits Extrem General: Yes no clubbing, cyanosis or edema Objective Labs and Meds 10/01/23 10:34 10/01/23 10:34 Lab results: Laboratory Results - last 24 hr 10/01/23 10:34 WBC 8.5 RBC 5.30 Hgb 10.2 L Hct 33.0 L MCV 62.3 L MCH 19.2 L MCHC 30.9 L RDW 17.4 H Plt Count 241 MPV 10.7 Immature Gran % (Auto) 0.4 Neut % (Auto) 87.6 H Lymph % (Auto) 6.0 L [place] % (Auto) 5.1 Eos % (Auto) 0.5 Baso % (Auto) 0.4 Lymph # (Auto) 0.5 L [place] # (Auto) 0.4 Eos # (Auto) 0.0 Baso # (Auto) 0.0 Abs Immat Gran (auto) 0.03 Absolute Neuts (auto) 7.4 Absolute Nucleated RBC 0.000 Nucleated RBC % (auto) 0.0 PT 13.8 H INR 1.1 D-Dimer High Sensitivty Cancelled Sodium 138 Potassium 4.4 Chloride 103 Carbon Dioxide 29 Anion Gap 10 L BUN 24 H Creatinine 0.94 Estim Creat Clear Calc 31.4 Estimated GFR 57 Random Glucose 119 H Calcium 9.9 Magnesium 2.1 Total Bilirubin 0.6 AST 23 ALT 15 Alkaline Phosphatase 78 Troponin I High Sens 6.3 B-Natriuretic Peptide 317 H Total Protein 7.8 Albumin 4.4 TSH 2.59 Imaging Radiologist's impression: Impressions Chest X-Ray 10/01/23 11:16 IMPRESSION: No acute cardiopulmonary disease. Progress Note: A&P Assessment and plan (1) Atrial fibrillation with rapid ventricular response: Status: Acute Assessment and Plan: Atrial fibrillation status post cardioversion. Patient is very symptomatic with atrial fibrillation. Continue with Multaq 400 mg b.i.d. to maintain rhythm to avoid recurrent hospitalization related to atrial fibrillation. Discontinue metoprolol therapy and switch to Norvasc 2.5 mg for blood pressure control. Continue full oral anticoagulation with Xarelto. 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 Thank you for allowing me to partake in her care Time Spent With Patient Time: Total time managing care of this patient today ____ minutes. Progress Note: Quality Stroke Does the patient have a stroke diagnosis?: No Procedures Date of Service Date of Service: 10/02/23
--- NOTE | 2023-10-02 10:17 | PM.DS ---
DS: Providers Provider Date of Service: 10/02/23 Date of admission: 10/01/23 14:39 Primary care physician: Igor Perry MD Consults: 10/01/23 11:00 Consult to Cardiology Stat Consulting Provider: [facility] Cardiovascular Services Reason for consultation: aflutter 10/01/23 14:41 Consult to Cardiology Routine Consulting Provider: Sergio Maldonado Reason for consultation: atrial flutter Has provider been notified: Yes DS: Diagnosis Discharge Diagnosis (1) Atrial fibrillation with rapid ventricular response: Status: Acute DS: Summary Status at Discharge Cognitive/behavioral status at discharge: Date of Service: 10/01/23 Chief Complaint: Palpitations 83-year-old female patient with past medical history significant for atrial fibrillation on Xarelto, history of hypothyroidism, presented to [facility] due to symptoms of lightheadedness, shortness of breath and palpitation of 1 week duration, restricting her activity she denies a Surgi associated chest pain, no syncope, is compliant with home medications drinks 3 cup of coffee daily and 2 cups of decaf tea, denies alcohol ,no illicit drug use,, denies recent fever chills, no GI symptoms in the emergency room patient was noted in atrial flutter treated with IV Cardizem 10 mg heart rate improved to 62, but patient went back into atrial flutter with rapid rate receive 2nd dose of iv Cardizem 10 mg subsequently seen by warehouse delivery driver Dr. Gray and started on Multaq 400 mg twice daily patient received 1 dose of Multaq and again noted to be in atrial flutter heart rate in 130s at present patient denies chest pain, no lightheadedness, no palpitations or shortness of breath he is being admitted to telemetry unit for continued monitoring of symptomatic atrial flutter, chest x-ray showed no acute infiltrate CBC and BMP unremarkable, BNP elevated but patient in no clinical CHF. Hospital course 83-year-old female patient with past medical history significant for atrial fibrillation on Xarelto presented to [facility] due to symptoms of lightheadedness, shortness of breath palpitation and was noted to be in atrial fibrillation with rapid ventricular rate treated in the emergency room with multiple doses of IV Cardizem with persistent AFib therefore started on Multaq and IV Cardizem drip and admitted to telemetry unit with a diagnosis of symptomatic atrial fibrillation with RVR, overnight patient remained in atrial fibrillation therefore underwent cardioversion by Dr. Gray and converted into normal sinus rhythm, all symptoms of shortness of breath and weakness resolve, therefore will discharge home on Multaq 400 mg b.i.d. and Norvasc 2.5 mg b.i.d. for better blood pressure control recommend outpatient follow-up with Dr. Gray in 1-2 weeks.. Time Attestation Discharge coordination time: Greater than 30 minutes Quality: Safe Use of Opioids Does Pt have an Active Cancer Diagnosis on the Problem List?: No Quality: Stroke Does the patient have a stroke diagnosis?: No Physical Exam Vital Signs: Vital Signs: Last Vital Signs Temp 99.0 F 10/02/23 10:00 Pulse 72 10/02/23 10:00 Resp 18 10/02/23 10:00 BP 135/66 10/02/23 10:00 Pulse Ox 99 10/02/23 10:00 O2 Del Method Room Air 10/02/23 10:00 O2 Flow Rate 2 10/02/23 09:04 BMI result Body Mass Index 22.5 Const: Other: General awake alert x3, resting comfortably in no acute distress. Neck supple no JVD. CVS regular rate rhythm, Respiratory lungs clear to auscultation, no respiratory distress, no wheeze, no rhonchi. Gastrointestinal abdomen soft, non tender, bowel sounds audible, no guarding , no rigidity. Extremities no edema. Neuro non focal Skin no rash Psych appropriate affect DS: Data Data Completed and Pending Labs on day of discharge: Laboratory Results - last 24 hr 10/01/23 10:34 WBC 8.5 RBC 5.30 Hgb 10.2 L Hct 33.0 L MCV 62.3 L MCH 19.2 L MCHC 30.9 L RDW 17.4 H Plt Count 241 MPV 10.7 Immature Gran % (Auto) 0.4 Neut % (Auto) 87.6 H Lymph % (Auto) 6.0 L [place] % (Auto) 5.1 Eos % (Auto) 0.5 Baso % (Auto) 0.4 Lymph # (Auto) 0.5 L [place] # (Auto) 0.4 Eos # (Auto) 0.0 Baso # (Auto) 0.0 Abs Immat Gran (auto) 0.03 Absolute Neuts (auto) 7.4 Absolute Nucleated RBC 0.000 Nucleated RBC % (auto) 0.0 PT 13.8 H INR 1.1 D-Dimer High Sensitivty Cancelled Sodium 138 Potassium 4.4 Chloride 103 Carbon Dioxide 29 Anion Gap 10 L BUN 24 H Creatinine 0.94 Estim Creat Clear Calc 31.4 Estimated GFR 57 Random Glucose 119 H Calcium 9.9 Magnesium 2.1 Total Bilirubin 0.6 AST 23 ALT 15 Alkaline Phosphatase 78 Troponin I High Sens 6.3 B-Natriuretic Peptide 317 H Total Protein 7.8 Albumin 4.4 TSH 2.59 Discharge Plan Discharge Anticipated Discharge Date/Time: 10/02/23 09:55 Patient Disposition: Home, Self-Care Discharge Diagnosis: Symptomatic atrial fibrillation with RVR Referrals: Winnie Stein [employer] [Nurse Practitioner] - 1 day Igor Perry MD [Primary Care Provider] - 1 day Discharge Medications: New Multaq 400 mg Tablet 400 mg PO BID Qty: 60 0RF amlodipine [Norvasc] 2.5 mg tablet 2.5 mg PO DAILY Qty: 30 0RF Continued latanoprost 0.005 % drops 1 drp ophthalmic (eye) BEDTIME ketorolac 0.5 % drops 1 drp ophthalmic-Left DAILY levothyroxine 50 mcg tablet 50 mcg PO DAILY@0600 Xarelto 20 mg tablet 20 mg PO DAILY@1600 calcium carbonate [Calcium 600] 600 mg calcium (1,500 mg) Tablet 600 mg PO DAILY cholecalciferol (vitamin D3) [Vitamin D3] 50 mcg (2,000 unit) Tablet 50 mcg PO DAILY Centrum Silver Women 8 mg iron-400 mcg-50 mcg Tablet 1 tab PO DAILY Discontinued metoprolol succinate 25 mg tablet extended release 24 hr 25 mg PO DAILY@1600 Discharge Orders: Discharge Order (Routine); Ordered 10/02/23 Ordered By: Lamont Beckett Diet: Advance to usual diet Activity on Discharge: As tolerated Stand Alone Forms: Patient Portal Discharge page Care Plan Goals: Take Norvasc 2.5 mg daily and Multaq 400 mg 1 tablet twice daily Stop using metoprolol Return to hospital with recurrent symptoms of shortness of breath weakness or lightheadedness. Health Concerns: Continue eyedrops as before Plan of Treatment: Follow-up with cardiology call to make an appointment in 1-2 weeks. Assessment: As above Patient Instructions: Atrial Flutter (ED), Hypertension (ED)
[2023-10-02] MEDS: Dronedarone HCl 400 MG TABLET PO (10:40)
== END 2023-10-02 11:15 | disposition home or self-care (01) | DRG 310 ==
LOC: HO.ED 13:01 → HO.EDOVER 14:43 → HO.IMC 10-02 08:50
PROVIDERS: Internal Medicine Cardiovascular Disease; Physician Assistant; Admitting Provider Hospitalist; Emergency Provider Emergency Medicine Emergency Medical Services; PCP Family Medicine; Visit Provider Hospitalist
PROC: 5A2204Z Restoration of Cardiac Rhythm, Single (ICD-10-PCS; principal; 2023-10-02 08:30)
DX: I48.19 Other persistent atrial fibrillation (principal); E03.9 Hypothyroidism, unspecified; I10 Essential (primary) hypertension; Z79.01 Long term (current) use of anticoagulants; Z79.890 Hormone replacement therapy; Z79.899 Other long term (current) drug therapy
CPT/HCPCS: 36415; 71045; 80053; 83735; 83880; 84443; 84484; 85025; 85610; 92960; 93005; 99285; J2704

== ENCOUNTER → 2023-10-01 09:45 | Outpatient (BNV) | payer MEDICARE, SELFPAY | PROVIDERS: Emergency Provider Emergency Medicine Emergency Medical Services; PCP Family Medicine; Visit Provider Internal Medicine Cardiovascular Disease | DX: I48.19 Other persistent atrial fibrillation (principal) | CPT/HCPCS: 92960; 93010; 99222; 99232 ==

== ENCOUNTER → 2023-10-01 14:39 | Outpatient (BNV) | payer MEDICARE, SELFPAY | PROVIDERS: Admitting Provider Hospitalist; Emergency Provider Emergency Medicine Emergency Medical Services; PCP Family Medicine; Visit Provider Hospitalist | DX: I48.91 Unspecified atrial fibrillation (principal) | CPT/HCPCS: 99223; 99239 ==

== ENCOUNTER 2023-10-17 13:39 | Outpatient (AMB) | payer MEDICARE, SELFPAY ==
[2023-10-17 13:50] VITALS: BP 130/76; PULSE 73; BMI 22.4
--- NOTE | 2023-10-17 13:50 | MHC.OFFVIS ---
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 Required: No Allergies No Known Allergies Allergy (Verified 10/02/23 08:01) Medication List - Last Reconciled 10/17/23 by Sergio Maldonado MD amlodipine (Norvasc) 2.5 mg PO DAILY calcium carbonate (Calcium) 600 mg PO DAILY cholecalciferol (vitamin D3) (Vitamin D3) 50 mcg PO DAILY dronedarone (Multaq) 400 mg PO BID ketorolac 0.5% 1 drp ophthalmic-Left DAILY latanoprost 0.005% 1 drp ophthalmic (eye) BEDTIME levothyroxine 50 mcg PO DAILY@0600 [id number]-siub-FA-vit K-lut 8 mg iron-400 mcg-50 mcg (Centrum Silver Women) 1 tab PO DAILY rivaroxaban (Xarelto) 20 mg PO DAILY@1600 HPI HPI Comments History of Present Illness Details Lily comes for follow-up after recent hospitalization for symptomatic atrial fibrillation recurrence. She was then cardioverted and started on Multaq 400 mg b.i.d. and remained in sinus rhythm. Since then she is remained in sinus rhythm and feels better from that perspective although she notices some increased fatigue. She also notices lightheadedness is worried about Norvasc therapy although she is notice that her blood pressure at home have all been mostly within normal limits and actually when she has lightheadedness a blood pressure is on the higher side. She complains of lightheadedness while she was talking to me although a blood pressures systolic 136. She has not had any bleeding issues or neurologic events. Denies any heart failure symptoms. She wants to get back to her exercise level. She denies any exertional chest pain. [facility] Medical History Paroxysmal atrial fibrillation Hypertension Atrial flutter Hypertension Hypothyroid Surgical History Hx of cholecystectomy Status post-operative repair of hip fracture Social History Household Members: None Housing: House Do you presently have visiting nurse or other home services: No Comment: n/a Patient Tobacco Use Status: Never used Tobacco Second Hand Smoke Exposure: No service: No Review of Systems Const Denies chills, Denies daytime sleepiness, Denies fatigue, Denies fever(s), Denies frequent falls, Denies poor appetite, Denies snoring, Denies stops breathing during sleep, Denies weakness, Denies weight gain and Denies weight loss Eyes Denies loss of vision ENT Denies dizziness and Denies hearing loss Card Denies chest pain, Denies claudication, Denies leg edema, Denies lightheadedness, Denies palpitations, Denies dyspnea, Denies dyspnea on exertion and Denies orthopnea Resp Denies cough, Denies excessive phlegm production, Denies dyspnea, Denies dyspnea on exertion, Denies snoring and Denies wheezing GI Denies abdominal pain, Denies hematochezia, Denies change in bowel habits, Denies nausea and Denies vomiting Denies urinary frequency and Denies dysuria Musc Denies arthralgias, Denies muscle weakness, Denies numbness and Denies other (frequent falls) Skin/Breast Denies nail changes and Denies rash Neuro Denies Abnormal speech present, Denies dizziness, Denies frequent falls, Denies loss of vision, Denies memory loss, Denies numbness and Denies weakness Psych Denies depression and Denies memory loss Endo Denies fatigue and Denies palpitations Devin/Lymph Reports easy bruising and Reports other (anemia) Aller/Immun Denies wheezing Physical Exam Vital Signs: Last Vital Signs Pulse 73 10/17/23 13:50 BP 130/76 10/17/23 13:50 BMI result Body Mass Index 22.4 Const General: cooperative, comfortable, no acute distress, alert, awake and Physically active Nutritional Appearance: average body habitus Orientation/consciousness: patient oriented x3 Neck Neck: Yes trachea midline, Yes supple and Yes no JVD Resp Effort & Inspection: normal respiratory effort Auscultation: clear to auscultation bilaterally Cardio Jugular venous distension: no JVD Palpation: normal PMI Rate: regular rate Rhythm: regular rhythm Heart sounds: S1 normal heart sound present, S2 normal heart sound present, no click, no gallops, no murmurs and no rubs GI Auscultation: normal bowel sounds Neuro General: patient oriented x3 Speech: No Abnormal speech present Extrem General: Yes no clubbing, cyanosis or edema Office Procedures EKG Details: EKG shows normal sinus rhythm with normal EKG [id number], Complete Assessment & Plan Assessment & Plan (1) Paroxysmal atrial fibrillation: Code(s): I48.0 - Paroxysmal atrial fibrillation Plan: Paroxysmal atrial fibrillation, highly symptomatic. Currently heart rate is controlled. She is doing well from that perspective with managing rhythm. She is tolerating Multaq therapy well at this point time except for that she has had symptoms of exertional fatigue. Advised her to undergo 2 day Holter monitor to assess for chronotropic competence. Also advised an echocardiogram to evaluate for structural heart disease including LV systolic and diastolic function. These tests will be scheduled in near future. Importance of rhythm control approach to reduce risk of hospitalization was discussed. Continue full oral anticoagulation, currently on Xarelto 20 mg daily. Avoidance of stimulants was discussed. (2) Hypertension: Code(s): I10 - Essential (primary) hypertension Plan: Hypertension which is well optimized on low-dose amlodipine therapy. She has prior history of syncope and is concerned about symptoms of lightheadedness although a blood pressures at home have been generally well controlled and with symptoms her blood pressure has been more elevated. Advised to monitor for the same. Orthostatic precautions were discussed. Advised to maintain adequate hydration. Low-salt diet was discussed. She is advised to call my office if she continues to have symptoms and/or has significantly low blood pressure. She understands and agrees. Follow up in the clinic in 6 weeks time, sooner p.r.n.. Thank you for allowing me to partake in her care Orders: Orders CA echo transthoracic complete Today I48.0 - Paroxysmal atrial fibrillation ECG holter monitor 48 hour Today I48.0 - Paroxysmal atrial fibrillation Coding Level of Care Code Est Pt Level 4 (51987) Diagnoses Paroxysmal atrial fibrillation I48.0 Hypertension I10 CPT Codes EKG - CPT: 89132-[id number], Complete ([id number])
== END 2023-10-17 14:34 | disposition home or self-care (01) ==
PROVIDERS: PCP Family Medicine; Visit Provider Internal Medicine Cardiovascular Disease
DX: I48.0 Paroxysmal atrial fibrillation (principal); I10 Essential (primary) hypertension
CPT/HCPCS: 93010; 99214

== ENCOUNTER → 2023-10-17 13:39 | Outpatient (BNVA) | payer MEDICARE, SELFPAY | PROVIDERS: PCP Family Medicine; Visit Provider Internal Medicine Cardiovascular Disease | DX: I48.0 Paroxysmal atrial fibrillation (principal); I10 Essential (primary) hypertension | CPT/HCPCS: 93005; 99212 ==

== ENCOUNTER → 2023-11-12 10:48 | Outpatient (REF) | payer MEDICARE, SELFPAY ==
--- NOTE | 2023-11-12 10:51 | HM_ITS ---
Conclusion: 1. Patient was monitored for total period of 1 day 23 hours 2. Baseline was normal sinus rhythm with average heart of 66 beats per minute 3. Frequent PACs noted with total burden of about 2% with no significant atrial fibrillation episodes noted 4. Occasional PVCs noted 5. No patient reported events MTDD
--- NOTE | 2023-11-12 10:51 | CA_ITS ---
Transthoracic Echocardiogram Patient (Last, First, Middle): Lily Rodriguez, Gender: Female Date of : 1940 Age: 83 Procedure Date: 11/12/2023 Procedure Type: Transthoracic Echocardiogram Location: OP Height: 154.94 cm Weight: 49.9 kg BSA: 1.47 m2 Heart Rate: bpm BP: 110 / 60 mmHg Scrap Burner: Referring MD: Sergio Maldonado MD Patternator: Sergio Maldonado MD Symptoms: I48.0 - Paroxysmal atrial fibrillation Study Quality: Adequate ECG Rhythm: Sinus Conclusions: - 1. Low normal LV ejection fraction 50-55% with grade 1 diastolic dysfunction 2. Mildly dilated left atrium 3. Normal cardiac valvular Doppler 4. Normal RV systolic pressure 5. Upper limits of ascending aortic size Findings Left Ventricle Normal left ventricular cavity size. There is normal left ventricular wall thickness. The left ventricular systolic function is low normal. The visually estimated ejection fraction is between 50-55%. Spectral Doppler is indicative of an impaired relaxation filling pattern. E/E prime ratio is <8, consistent with normal filling pressures. Evidence suggests grade I (mild) diastolic dysfunction. Right Ventricle Normal right ventricular cavity size and systolic function. Atria The left atrium is mildly dilated. There is no evidence of interatrial shunt. The right atrium is likely dilated. Aortic Valve There is mild calcification of the aortic valve. There is no aortic valve stenosis. There is no aortic valve regurgitation. Mitral Valve Normal mitral valve structure and function. There is trace mitral valve regurgitation. There is no mitral valve stenosis. Pulmonic Valve The pulmonic valve is likely normal. Tricuspid Valve Normal tricuspid valve structure. There is trace tricuspid valve regurgitation. The right ventricular systolic pressure is normal. The right ventricular systolic pressure is 22 mmHg. Normal right atrial pressure. There is no evidence of pulmonary hypertension. Great Vessels The pulmonary artery was not well visualized. Venous The inferior vena cava is normal in size and collapses greater than 50% with inspiration. Pericardium/Pleural There is no evidence of pericardial effusion. Prior Study Comparison No prior study available for comparison. Measurements 2D Linear Measurements IVSd: 1.04 0.6-0.9/0.6-1.0 cm LVIDd: 4.21 3.9-5.3/4.2-5.9 cm LVIDd Index: 2.86 2.4-3.2/2.2-3.1 cm/m2 LVIDs: 2.68 2.0-3.6 cm LVPWd: 1.04 0.7-1.1 cm Ao Root: 2.80 2.1-3.5 cm LA Diam: 3.40 2.7-3.8/3.0-4.0 cm LAIDs Index: 2.31 1.5-2.3 cm/m2 LV Mass: 181.21 67-162/88-224 g LV Mass Index: 123.27 43-95/49-115 g/m2 LVOT Diam: 2.00 3.0+(-)1.3 cm 2D Systolic Function EF 4C: 48.50 >55% EF 2C: 59.20 >55% EF BiP: 52.70 >55% Mitral Valve MV Pk E: 0.67 MV PK A: 0.63 MV Decel Time: 223.00 E/A: 1.10 E'Lateral: 7.94 E'Medial: 5.98 E/E' Med: 11.20 E/E' Lat: 8.40 PHT: 65.00 MVA PHT: 3.38 Decel Bartow: 3.00 Aortic Valve AoV Pk Wong: 1.25 AoV Mn Wong: 0.75 AoV VTI: 0.32 AoV Pk Grad: 6.00 Aov Mn Grad: 3.00 SUDHIR Cont.VTI: 1.71 LVOT LVOT Pk Wong: 0.71 LVOT Mn Wong: 0.47 LVOT VTI: 0.17 LVOT Pk Grad: 2.00 LVOT Mn Grad: 1.00 LVOT Diam: 2.00 LVOT Area: 3.14 Diastolic Function MV Pk E: 0.67 MV Pk A: 0.63 E/A: 1.10 E'Medial: 5.98 E/E' Med: 11.20 E' Laterial: 7.94 E/E' Lat: 8.40 Right Ventricle TAPSE (mm): 32.00 TVS' Wong: 12.00 Tricuspid Valve TR Pk Wong: 2.16 TR Pk Grad: 19.00 RA Press: 3.00 RVSP: 22.00 Great Vessels Aorta Ao Root-2D: 2.80 2.0-3.7 cm Ao Asc: 3.50 2.1-3.4 cm Pulmonary Valve PV Pk Wong: 0.83 Peak PV Grad: 3.00 Updated in Other Vendor System with Status of Final Sergio Maldonado MD electronically signed on 11/12/2023 4:52:17 PM with status of Final
== END ==
LOC: HO.CARD 10:48
PROVIDERS: PCP Family Medicine; Visit Provider Internal Medicine Cardiovascular Disease
DX: I48.0 Paroxysmal atrial fibrillation (principal)
CPT/HCPCS: 93225; 93306

== ENCOUNTER → 2023-11-12 10:51 | Outpatient (BNV) | payer MEDICARE, SELFPAY | PROVIDERS: PCP Family Medicine; Visit Provider Internal Medicine Cardiovascular Disease | DX: I49.1 Atrial premature depolarization (principal) | CPT/HCPCS: 93227; 93306 ==

== ENCOUNTER 2023-12-05 12:59 | Outpatient (AMB) | payer MEDICARE, SELFPAY ==
[2023-12-05 13:18] VITALS: BP 118/60; PULSE 62; BMI 22.4
--- NOTE | 2023-12-05 13:18 | MHC.OFFVIS ---
Intake Vital Signs 12/05/23 13:18 Height 5 ft Weight 114 lb 10.246 oz BMI 22.4 BP 118/60 Blood Pressure Location Lt brachial Position Sitting Pulse 62 Intake Visit Reasons: 6 week/holter/ echo Intake Note: 6 week follow-up after echo and holter feeling good Prime Broker Required: No Allergies No Known Allergies Allergy (Verified 10/02/23 08:01) Medication List - Last Reconciled 12/05/23 by Sergio Maldonado MD amlodipine (Norvasc) 2.5 mg PO DAILY 90 days calcium carbonate (Calcium) 600 mg PO DAILY cholecalciferol (vitamin D3) (Vitamin D3) 50 mcg PO DAILY dronedarone (Multaq) 400 mg PO BID 90 days ketorolac 0.5% 1 drp ophthalmic-Left DAILY latanoprost 0.005% 1 drp ophthalmic (eye) BEDTIME levothyroxine 50 mcg PO DAILY@0600 osxxkxae-nfj-rsjf-FA-vit K-lut 8 mg iron-400 mcg-50 mcg (Centrum Silver Women) 1 tab PO DAILY rivaroxaban (Xarelto) 20 mg PO DAILY@1600 90 days HPI HPI Comments History of Present Illness Details Lily comes for follow-up. She has been doing well from cardiac perspective. She denies any new cardiac symptoms. She has been starting to walk again in his up to 1-1/2 miles but her left knee is the 1 restricting her. No cardiac issues. Denies any shortness of breath, orthopnea PND. Denies any prolonged irregular heartbeat or palpitations. No bleeding issues or neurologic events. Taking her medications regularly. Her recent echocardiogram showed low normal LV ejection fraction with mildly dilated left atrium. The Holter monitor results are not available as yet [facility] Medical History Paroxysmal atrial fibrillation Hypertension Atrial flutter Hypertension Hypothyroid Surgical History Hx of cholecystectomy Status post-operative repair of hip fracture Social History Household Members: None Housing: House Do you presently have visiting nurse or other home services: No Comment: n/a Patient Tobacco Use Status: Never used Tobacco Second Hand Smoke Exposure: No service: No Review of Systems Const Denies chills, Denies fatigue, Denies fever(s), Denies frequent falls, Denies weakness, Denies weight gain and Denies weight loss ENT Denies dizziness Card Denies chest pain, Denies leg edema, Denies lightheadedness, Denies palpitations, Denies dyspnea, Denies dyspnea on exertion, Denies orthopnea and Denies other (loss of consciousness) Resp Denies cough, Denies dyspnea and Denies dyspnea on exertion GI Denies hematochezia and Denies change in stool character Musc Denies abnormal gait, Denies muscle weakness, Denies numbness, Denies radiating pain into limb and Denies tingling Neuro Denies Abnormal speech present, Denies abnormal gait, Denies dizziness, Denies frequent falls, Denies numbness, Denies tingling and Denies weakness Endo Denies fatigue and Denies palpitations Physical Exam Vital Signs: Last Vital Signs Pulse 62 12/05/23 13:18 BP 118/60 12/05/23 13:18 BMI result Body Mass Index 22.4 Const General: cooperative, comfortable, no acute distress, alert, awake and Physically active Nutritional Appearance: average body habitus Orientation/consciousness: patient oriented x3 Neck Neck: Yes trachea midline, Yes supple and Yes no JVD Resp Effort & Inspection: normal respiratory effort Auscultation: clear to auscultation bilaterally Cardio Jugular venous distension: no JVD Palpation: normal PMI Rate: regular rate Rhythm: regular rhythm Heart sounds: S1 normal heart sound present, S2 normal heart sound present, no click, no gallops, no murmurs and no rubs GI Auscultation: normal bowel sounds Neuro General: patient oriented x3 Speech: No Abnormal speech present Extrem General: Yes no clubbing, cyanosis or edema Office Procedures EKG Details: EKG shows normal sinus rhythm with PACs otherwise normal EKG with normal axis [id number], Complete Assessment & Plan Assessment & Plan (1) Paroxysmal atrial fibrillation: Code(s): I48.0 - Paroxysmal atrial fibrillation Plan: Highly symptomatic paroxysmal atrial fibrillation leading to hospitalization. Since cardioversion she has been doing very well with rhythm management. She is increase exercise activity and feeling quite well. Continue aggressively rhythm control approach. Advised to continue Multaq therapy which has helped her significantly. Continue full oral anticoagulation, currently on Xarelto 20 mg daily. Quarterly renal function test should be pursued. Role of stimulants and development of atrial fibrillation was discussed. (2) Hypertension: Code(s): I10 - Essential (primary) hypertension Plan: Hypertension with poor tolerance to lot of different medications but has done well with low-dose amlodipine therapy. Blood pressure is currently well optimized. Advised to continue amlodipine at 2.5 mg daily. Advised to monitor blood pressure at home maintain a log. Goal blood pressure less than 130/84. Low-salt diet was discussed. Stress mitigation strategies was discussed. Will follow up in the clinic in 3 months for EKG in 6 months with me. Thank you for allowing me to partake in the care Medications: Refilled rivaroxaban (Xarelto) 20 mg PO DAILY@1600 90 days 90 tabs 3RF dronedarone (Multaq) 400 mg PO BID 90 days 180 tabs 3RF Coding Level of Care Code Est Pt Level 4 (81454) Diagnoses Paroxysmal atrial fibrillation I48.0 Hypertension I10 CPT Codes EKG - CPT: [id number], Complete ([id number])
== END 2023-12-05 13:53 | disposition home or self-care (01) ==
PROVIDERS: PCP Family Medicine; Visit Provider Internal Medicine Cardiovascular Disease
DX: I48.0 Paroxysmal atrial fibrillation (principal); I10 Essential (primary) hypertension
CPT/HCPCS: 93010; 99214

== ENCOUNTER → 2023-12-05 12:59 | Outpatient (BNVA) | payer MEDICARE, SELFPAY | PROVIDERS: PCP Family Medicine; Visit Provider Internal Medicine Cardiovascular Disease | DX: I48.0 Paroxysmal atrial fibrillation (principal); I10 Essential (primary) hypertension; Z79.01 Long term (current) use of anticoagulants; Z79.899 Other long term (current) drug therapy | CPT/HCPCS: 93005; 99212 ==

== ENCOUNTER → 2024-03-05 09:36 | Outpatient (BNVA) | payer MEDICARE, SELFPAY | PROVIDERS: PCP Family Medicine; Visit Provider Internal Medicine Cardiovascular Disease ==

== ENCOUNTER 2024-06-11 13:34 | Outpatient (AMB) | payer MEDICARE, SELFPAY ==
[2024-06-11 13:42] VITALS: BP 114/72; PULSE 67; BMI 22.4
--- NOTE | 2024-06-11 13:42 | A.OFFVIS_ITS ---
Vital Signs 06/11/24 13:42 Height 5 ft Weight 114 lb 10.246 oz BMI 22.4 BP 114/72 Blood Pressure Location Lt brachial Position Sitting Pulse 67 Intake Visit Reasons: 6 month follow up Intake Note: 6 month follow-up feeling good Family Day Care Worker Required: No Allergies No Known Allergies Allergy (Verified 10/02/23 08:01) Medication List - Last Reconciled 06/11/24 by Sergio Maldonado MD amlodipine (Norvasc) 2.5 mg PO DAILY 90 days calcium carbonate (Calcium 600) 600 mg PO DAILY cholecalciferol (vitamin D3) (Vitamin D3) 50 mcg PO DAILY dronedarone (Multaq) 400 mg PO BID 90 days ketorolac 0.5% 1 drp ophthalmic-Left DAILY latanoprost 0.005% 1 drp ophthalmic (eye) BEDTIME levothyroxine 50 mcg PO DAILY@0600 wyfpotap-eii-euci-FA-vit K-lut 8 mg iron-400 mcg-50 mcg (Centrum Silver Women) 1 tab PO DAILY rivaroxaban (Xarelto) 20 mg PO DAILY@1600 90 days HPI Comments Details: Lily comes for follow-up. She is doing very well from cardiac perspective. She has had no recurrent episodes of atrial fibrillation. She says she is back to her activity level and recently completed 3 months of walking. She denies any exertional chest pain shortness of breath. No prolonged palpitation irregular heartbeat. No fluttering in her chest. No bleeding issues or neurologic events. No lightheadedness, syncope. No heart failure symptoms. Takes all her medications regularly. [facility] Medical History Paroxysmal atrial fibrillation Hypertension Atrial flutter Hypertension Hypothyroid Surgical History Hx of cholecystectomy Status post-operative repair of hip fracture Social History Household Members: None Housing: House Do you presently have visiting nurse or other home services: No Comment: n/a Patient Tobacco Use Status: Never used Tobacco Second Hand Smoke Exposure: No service: No Review of Systems Const Denies chills, Denies fatigue, Denies fever(s), Denies frequent falls, Denies weakness, Denies weight gain and Denies weight loss ENT Denies dizziness Card Denies chest pain, Denies leg edema, Denies lightheadedness, Denies palpitations, Denies dyspnea, Denies dyspnea on exertion, Denies orthopnea and Denies other (loss of consciousness) Resp Denies cough, Denies dyspnea and Denies dyspnea on exertion GI Denies hematochezia and Denies change in stool character Musc Denies abnormal gait, Denies muscle weakness, Denies numbness, Denies radiating pain into limb and Denies tingling Neuro Denies Abnormal speech present, Denies abnormal gait, Denies dizziness, Denies frequent falls, Denies numbness, Denies tingling and Denies weakness Endo Denies fatigue and Denies palpitations Physical Exam Vital Signs: Last Vital Signs Pulse 67 06/11/24 13:42 BP 114/72 06/11/24 13:42 BMI result Body Mass Index 22.4 Const General: cooperative, comfortable, no acute distress, alert, awake and Physically active Nutritional Appearance: average body habitus Orientation/consciousness: patient oriented x3 Neck Neck: Yes trachea midline, Yes supple and Yes no JVD Resp Effort & Inspection: normal respiratory effort Auscultation: clear to auscultation bilaterally Cardio Jugular venous distension: no JVD Palpation: normal PMI Rate: regular rate Rhythm: regular rhythm Heart sounds: S1 normal heart sound present, S2 normal heart sound present, no click, no gallops, no murmurs and no rubs GI Auscultation: normal bowel sounds Neuro General: patient oriented x3 Speech: No Abnormal speech present Extrem General: Yes no clubbing, cyanosis or edema Office Procedures EKG Details: EKG shows normal sinus rhythm with normal EKG 60718-[id number], Complete Assessment & Plan Assessment & Plan (1) Paroxysmal atrial fibrillation: Code(s): I48.0 - Paroxysmal atrial fibrillation Category: Medical Plan: Highly symptomatic paroxysmal atrial fibrillation which has done very well from cardiac perspective. Patient denies any significant episodes. Patient has tolerated antiarrhythmic drug therapy with Multaq valve. Will need EKGs every 3 months. Continue full oral anticoagulation, currently on Xarelto 20 mg daily. Semi annual renal function test to be pursued. Avoidance of stimulants was discussed advised to call me with worsening symptoms. (2) Hypertension: Code(s): I10 - Essential (primary) hypertension Category: Medical Plan: Hypertension which is currently well optimized on current therapy. Importance of good blood pressure control was discussed. Target goal blood pressure less than 130/84. Low-salt diet was discussed. Advised to monitor blood pressure at home maintain a log. Follow up in the clinic in 1 year's time with me. Thank you for allowing me to partake in his care Orders: Orders Basic Metabolic Panel Today I48.0 - Paroxysmal atrial fibrillation Coding Level of Care Code Est Pt Level 4 (82690) Diagnoses Paroxysmal atrial fibrillation I48.0 Hypertension I10 CPT Codes EKG - CPT: 65201-Fqkkabjkylaufiqmg, Complete ([id number])
== END 2024-06-11 14:14 | disposition home or self-care (01) ==
PROVIDERS: PCP Family Medicine; Visit Provider Internal Medicine Cardiovascular Disease
DX: I48.0 Paroxysmal atrial fibrillation (principal); I10 Essential (primary) hypertension
CPT/HCPCS: 93010; 99214

== ENCOUNTER → 2024-06-11 13:34 | Outpatient (BNVA) | payer MEDICARE, SELFPAY | PROVIDERS: PCP Family Medicine; Visit Provider Internal Medicine Cardiovascular Disease | DX: I48.0 Paroxysmal atrial fibrillation (principal); I10 Essential (primary) hypertension | CPT/HCPCS: 93005; 99212 ==

== ENCOUNTER 2024-06-25 11:50 | Outpatient (REF) | payer MEDICARE, SELFPAY ==
[2024-06-25 12:53] LABS: Anion Gap 13 (12-20); Blood Urea Nitrogen 24 mg/dL (9-16); Calcium 9.8 mg/dL (8.4-10.2); Carbon Dioxide 27 mmol/L (22-29); Chloride 100 mmol/L (96-108); Estimated Glomerular Filt Rate 49; Glucose Random 94 mg/dL (60-115); Potassium 4.5 mmol/L (3.3-5.1); Sodium 135 mmol/L (135-145)
== END 2024-06-25 11:51 | disposition home or self-care (01) ==
LOC: HO.LAB 11:50
PROVIDERS: PCP Family Medicine; Visit Provider Internal Medicine Cardiovascular Disease
DX: I48.0 Paroxysmal atrial fibrillation (principal)
CPT/HCPCS: 36415; 80048

== ENCOUNTER 2024-08-31 08:44 | Emergency (ER) | payer MEDICARE, SELFPAY ==
[2024-08-31] VITALS (11 sets, daily range): BP systolic 109–154; BP diastolic 51–88; PULSE 62–102; RESP 15–19; TEMP 36.6–36.7; O2SAT 96–100; BMI 22.7
--- NOTE | ~2024-08-31 | XR_ITS ---
EXAMINATION: XR CHEST CLINICAL INFORMATION: palpitations COMPARISON: Chest radiograph dated 10/01/2023. TECHNIQUE: Frontal view of the chest was obtained. FINDINGS: The lungs are clear. The cardiomediastinal silhouette is normal in size. There is no pleural effusion or pneumothorax. No acute osseous abnormality. XR/XR chest 1V IMPRESSION: No acute cardiopulmonary findings. Electronically signed by: Torey Escobar MD 08/31/2024 11:34 AM [facility] [place]
--- NOTE | 2024-08-31 08:47 | ECG_ITS ---
Test Reason : dizziness/ afib Blood Pressure : / mmHG Vent. Rate : 098 BPM Atrial Rate : 000 BPM P-R Int : 000 ms QRS Dur : 092 ms QT Int : 364 ms P-R-T Axes : 000 -08 041 degrees QTc Int : 464 ms Atrial fibrillation Abnormal ECG When compared with ECG of 02-OCT-2023 08:48, Atrial fibrillation has replaced Sinus rhythm Referred By: Generic ED Physician Electronically Signed By:LUIS ALBERTO MCMANUS MD
--- NOTE | 2024-08-31 09:14 | ED_ITS ---
HPI - General Adult General Chief complaint: Arrhythmia/Palpitations Stated complaint: Afib Time Seen by Provider: 08/31/24 09:14 Source: patient Mode of arrival: ambulatory Limitations: no limitations History of Present Illness ED Provider: Isa Lancaster PA-C HPI narrative: Patient is an 84 year old assigned female at with a history of HTN and paroxysmal atrial fibrillation on Xarelto and Maltaq presenting to the emergency department today with an intermittent elevated HR. Patient states that while at home she was randomly feeling her heart rate go up. Patient states that she would then feel lightheaded and short of breath. Patient states that the fastest her heart rate was, got up to >120 beats per minute. Patient states that she had to be cardioverted for this before and has been taking her Xarelto as prescribed. Patient denies any dizziness, lightheadedness, abdominal pain, nausea, vomiting, fever, chills, blurry vision, double vision, loss of vision, chest pain, difficulty breathing, shortness of breath, back pain, night sweats, pain with urination, increased urinary frequency, increased urinary urgency, blood in her urine or stool, syncope or a near syncopal episode, recent trauma or falls, bowel incontinence, bladder incontinence, or any other complaints at this time. Onset (ago): day(s) Relieving factors: none Exacerbating factors: none Associated symptoms: denies other symptoms Treatments prior to arrival: none Related Data Home Medications ?Medication ?Instructions ?Recorded ?Confirmed calcium carbonate (Calcium 600) 600 mg PO DAILY 10/01/23 06/11/24 cholecalciferol (vitamin D3) 50 50 mcg PO DAILY 10/01/23 06/11/24 mcg (2,000 unit) tablet (Vitamin D3) ketorolac 0.5 % eye drops 1 drp ophthalmic-Left DAILY 10/01/23 06/11/24 latanoprost 0.005 % eye drops 1 drp ophthalmic (eye) BEDTIME 10/01/23 06/11/24 levothyroxine 50 mcg tablet 50 mcg PO DAILY@0600 10/01/23 06/11/24 quxsitvc-crev-mcfp 8 mg-folic 400 1 tab PO DAILY 10/01/23 06/11/24 mcg-K 50 mcg-lutein 300 mcg tablet (Centrum Silver Women) Previous Rx's ?Medication ?Instructions ?Recorded amlodipine 2.5 mg tablet 2.5 mg PO DAILY #90 tabs 07/14/24 rivaroxaban 20 mg tablet (Xarelto) 20 mg PO DAILY #90 tabs 07/14/24 amiodarone 200 mg tablet 200 mg PO BID 1 month #60 tabs 08/31/24 Allergies Allergy/AdvReac Type Severity Reaction Status Date / Time No Known Allergies Allergy Verified 08/31/24 09:01 Review of Systems 2 Constitutional: Constitutional: Reports no additional constitutional complaints, Denies chills, Denies fever(s) and Denies night sweats Eyes: Eyes: Reports no additional eye complaints, Denies blurry vision, Denies change in vision, Denies diplopia, Denies eye discharge, Denies loss of vision and Denies eye pain ENT: Denies dizziness Cardiovascular: Cardiovascular: Reports no additional cardiovascular complaints, Denies chest pain, Denies lightheadedness, Denies Loss of Consciousness, Reports palpitations and Denies dyspnea Respiratory: Respiratory: Reports no additional respiratory complaints and Denies dyspnea Gastrointestinal: Gastrointestinal: Reports no additional gastrointestinal complaints, Denies abdominal pain, Denies melena, Denies hematochezia, Denies change in bowel habits and Denies change in stool character Genitourinary: Genitourinary: Denies hematuria, Denies urinary frequency, Denies dysuria, Denies urinary incontinence, Denies urinary hesitancy and Denies urinary urgency Musculoskeletal: Musculoskeletal: Reports no additional musculoskeletal complaints, Denies numbness and Denies tingling Neurologic: Denies dizziness, Denies loss of vision, Denies numbness and Denies tingling Psychiatric: Psychiatric: Reports no additional psychiatric complaints Endocrine: Endocrine: Reports no additional endocrine complaints and Reports palpitations Hematologic/Lymphatic: Hematologic/Lymphatic: Reports no additional hematologic/lymphatic complaints Allergic/Immunologic: Allergic/Immunologic: Reports no additional allergic/immunologic complaints PMFSH Past Medical History Attestation statement: The following information was validated with the patient. Source: old records reviewed and nursing notes reviewed Medical History Paroxysmal atrial fibrillation Hypertension Atrial flutter Hypertension Hypothyroid Surgical History Hx of cholecystectomy Status post-operative repair of hip fracture Social History Social History Household Members: None Housing: House Do you presently have visiting nurse or other home services: No Alcohol intake: never Comment: n/a Patient Tobacco Use Status: Never used Tobacco Smoked in Last 30 Days: No Second Hand Smoke Exposure: No Use of substances other than those prescribed or required for medical reasons: No Advance Directives: No Advance Directives Information Provided: Yes Do you have a plan to hurt others: No Plan service: No Physical Exam ED Vital Signs: Vital Signs - 24 hr 08/31/24 08:59 08/31/24 10:29 08/31/24 12:41 Temperature 98.0 F 98 F Pulse Rate 102 H 96 89 Respiratory Rate 18 16 16 Blood Pressure 154/88 H 126/82 109/51 L Pulse Oximetry 100 96 98 Oxygen Delivery Method Room Air Room Air 08/31/24 12:43 08/31/24 12:44 08/31/24 12:46 Temperature Pulse Rate 89 100 Respiratory Rate 16 19 16 Blood Pressure 109/51 L 119/67 115/55 L Pulse Oximetry 100 98 98 Oxygen Delivery Method 08/31/24 12:47 08/31/24 12:49 08/31/24 12:52 Temperature Pulse Rate 80 74 73 Respiratory Rate 16 16 16 Blood Pressure 119/56 L 111/57 L 121/60 Pulse Oximetry 100 100 99 Oxygen Delivery Method 08/31/24 13:31 08/31/24 14:08 Temperature 98 F Pulse Rate 70 62 Respiratory Rate 15 Blood Pressure 125/57 L 132/59 L Pulse Oximetry 98 Oxygen Delivery Method BMI result Body Mass Index 22.7 Const General: cooperative, no acute distress, alert and awake Nutritional Appearance: well nourished Orientation/consciousness: patient oriented x3 Limitations: no limitations [facility] Head: Yes normal to inspection and Yes atraumatic Ears: hearing grossly normal bilaterally and external ears normal General nose exam: Normal external nose present, no nasal discharge noted and no epistaxis Face and sinus: Yes normal facial exam, No abrasion and No laceration Mouth: Normal oral and palatal mucosa present, no drooling and no muffled voice Eyes General: appearance normal, both eyes and all related structures Periorbital: periorbital findings normal Eyelids: Yes eyelids normal Conjunctivae: conjunctivae normal Pupils: Equal, round and reactive pupils present EOM: EOMs intact bilaterally Neck Neck: Yes normal visual inspection, Yes full ROM and Yes no lymphadenopathy Chest Chest palpation & inspection: normal inspection of the chest Resp Effort & Inspection: normal respiratory effort and able to speak in complete sentences Cardio Rate: regular rate Rhythm: abnormal rhythm irregularly irregular GI Inspection: Yes normal to inspection Neuro General: patient oriented x3 and moves all extremities Cranial nerves: Yes Equal, round and reactive pupils present Cognition (Neuro): normal cognition Extrem General: Yes normal to inspection, Yes full ROM and Yes capillary refill normal Psych Appearance: grossly normal Mental Status: mental status grossly normal Affect: normal affect Attitude: cooperative Thought process: Normal thought process present Thought content: Normal thought content present Insight: Good insight present (Psych) Medications Administered Discontinued Medications Generic Name Dose Route Start Last Admin Trade Name [place]q PRN Reason Stop Dose Admin Metoprolol Succinate 25 mg 08/31/24 12:49 08/31/24 13:31 Metoprolol Succinate Er 25 Mg Tab.Er.24h PO 08/31/24 12:50 25 mg ONCE ONE Administration Protocol Propofol 100 mg 08/31/24 12:16 08/31/24 12:44 Propofol 200 Mg/20 Ml Vial IVPUSH 08/31/24 12:17 40 mg ONCE ONE Administration Procedures Procedure Narrative Procedure Narrative: Cardioversion performed, without incident. Dr. Milligan at the bedside. Time out performed, monitor synchronized to rhythm, patient shocked once at 200J and converted to normal sinus rhythm. Procedural Sedation Indication: other (cardioversion) ASA Class: II Mallampati Class: I Preparation: personnel monitor applied, pulse oximeter, capnometry used, supplemental O2 applied, suction/airway equipment at bedside and IV secured IV Propofol dose (mg): 40 Patient Tolerated Procedure: well Complications: none Medical Decision Making Medical Decision Making MDM Narrative: Patient is an 84 year old assigned female at with a history of HTN and paroxysmal atrial fibrillation on Xarelto and Maltaq presenting to the emergency department today with an intermittent elevated HR. Patient's physical exam was as noted in the physical exam portion of this note. Patient's blood work was unremarkable. Patient's EKG showed atrial fibrillation. Patient's chest x-ray showed no acute process. I spoke to Dr. Maldonado who is the patient's tire fabric inspector and the tire fabric inspector data virtualization consultant. He recommended performing a cardioversion and switching the patient to Amiodarone from Maltaq. I explained my physical exam findings as well as all test results to the patient. I answered all questions asked by the patient. I explained all risks and benefits to the patient surrounding sedation and cardioversion. Patient verbalized understanding and agreement. Patient was cardioverted, per procedure note, without incident. Patient converted to sinus rhythm. I stressed the importance of the patient taking her medication as directed (either prescribed or as the over the counter packaging recommends). I stressed the importance of the patient following up with her primary care provider and her tire fabric inspector. I stressed the importance of the patient returning to the emergency department immediately if her symptoms were to worsen or if she were to develop any dizziness, shortness of breath, difficulty breathing, chest pain, blurry vision, loss of vision, nausea, vomiting, abdominal pain, fever, chills, back pain, or any other complaints. Patient verbalized agreement and understanding with this treatment plan and discharge. Differential Diagnosis Differential Diagnoses: The differential diagnosis associated with the presentation includes Atrial fibrillation Irregular rhythm Admission/Observation Consideration of admission/observation: Escalation of care including admission/observation considered Patient would have been admitted to the hospital had her work up had any findings where hospital admission was appropriate and her clinical presentation warranted hospital admission. Consult Healthcare Provider Management of the patient was discussed with: Content Assistant (spoke to the tire fabric inspector as noted in the MDM Rationale portion of this note.) Lab Data [facility] Lab Attestation statement: I reviewed the patient's lab results. My interpretation of these results are in the MDM Rationale portion of this note. 08/31/24 09:23 08/31/24 09:23 Labs: Lab Results 08/31/24 Range/Units 09:23 WBC 5.0 (4.8-10.8) X10*3/uL RBC 5.32 (4.20-5.50) X10*6/uL Hgb 10.6 L (12.0-16.0) g/dl Hct 33.2 L (37.0-47.0) % MCV 62.4 L (80.0-98.0) fL MCH 19.9 L (27.0-33.0) pg MCHC 31.9 (31.0-35.0) g/dl RDW 16.6 H (11.0-16.0) % Plt Count 240 (160-400) X10*3/uL MPV 10.9 (9.4-12.3) fL Immature Gran % (Auto) 0.2 (0.0-0.4) % Neut % (Auto) 83.2 H (45-73) % Lymph % (Auto) 9.4 L (20-40) % [place] % (Auto) 6.6 (2-11) % Eos % (Auto) 0.4 (0-4) % Baso % (Auto) 0.2 (0-2) % Lymph # (Auto) 0.5 L (1.2-4.9) X10*3/uL [place] # (Auto) 0.3 (0.1-1.2) X10*3/uL Eos # (Auto) 0.0 (0.0-0.4) X10*3/uL Baso # (Auto) 0.0 (0.0-0.2) X10*3/uL Abs Immat Gran (auto) 0.01 (0.00-0.03) X10*3/uL Absolute Neuts (auto) 4.1 (2.0-8.3) x10*3/uL Absolute Nucleated RBC 0.000 (0.0-0.012) X10*3/uL Nucleated RBC % (auto) 0.0 (0.0-0.2) /100WBC PT 15.8 H (10.9-12.4) SEC INR 1.4 H (0.9-1.1) Sodium 133 L (135-145) mmol/L Potassium 3.9 (3.3-5.1) mmol/L Chloride 99 (96-108) mmol/L Carbon Dioxide 29 (22-29) mmol/L Anion Gap 9 L (12-20) BUN 23 H (9-16) mg/dL Creatinine 1.05 (0.5-1.4) mg/dL Estim Creat Clear Calc 27.6 Estimated GFR 50 Random Glucose 116 H (60-115) mg/dL Calcium 9.6 (8.4-10.2) mg/dL Total Bilirubin 0.7 (0.0-1.0) mg/dL Direct Bilirubin 0.3 (0.0-0.5) mg/dL AST 25 (5-31) U/L ALT 16 (0-31) U/L Alkaline Phosphatase 64 (39-117) U/L Troponin I High Sens 3.6 (<3.5-17.0) ng/L Total Protein 7.8 (6.5-8.0) g/dL Albumin 4.3 (3.5-5.0) g/dL Lipase 13 (8-78) U/L Independent Interpretation I performed an independent interpretation of an: EKG and Plain X-Ray Interpretation: My interpretation is in agreement with the radiologist's impression of this imaging study. L EXAMINATION: XR CHEST CLINICAL INFORMATION: palpitations COMPARISON: Chest radiograph dated 10/01/2023. TECHNIQUE: Frontal view of the chest was obtained. FINDINGS: The lungs are clear. The cardiomediastinal silhouette is normal in size. There is no pleural effusion or pneumothorax. No acute osseous abnormality. XR/XR chest 1V IMPRESSION: No acute cardiopulmonary findings. Electronically signed by: Torey Escobar MD 08/31/2024 11:34 AM [facility] Dictated By: Torey Escobar MD Signed By: Electronically signed by Torey Escobar MD 08/31/24 1134 Vent. Rate: 098 BPM Atrial Rate: 000 BPM P-R Int: 000 ms QRS Dur: 092 ms QT Int: 364 ms P-R-T Axes: 000 -08 041 degrees QTc Int: 464 ms Atrial fibrillation Abnormal ECG When compared with ECG of 02-OCT-2023 08:48, Atrial fibrillation has replaced Sinus rhythm DD/ 0845 Vent. Rate: 073 BPM Atrial Rate: 073 BPM P-R Int: 180 ms QRS Dur: 082 ms QT Int: 412 ms P-R-T Axes: 086 -13 053 degrees QTc Int: 453 ms Normal sinus rhythm Normal ECG When compared with ECG of 31-AUG-2024 08:45, Sinus rhythm has replaced Atrial fibrillation DD/ 1246 Radiology Impression Discussion of test interpretation with radiology: I have reviewed the radiologist's reading. Chronic Conditions Patient?s care impacted by: Hypertension Critical Care Time Critical Care Time Critical Care Time: Yes Total Critical Care Time: 45 Attestation: I spent 45 minutes of Critical Care Time with this patient. This does not include time spent on separately reported billable procedures. Discharge Plan Discharge Clinical Impression: Paroxysmal atrial fibrillation Patient Disposition: Home, Self-Care Instructions: A-fib (Atrial Fibrillation) (DC), Cardioversion (DC) Additional Instructions: You were found to be in atrial fib today and the recommendation of your tire fabric inspector was to cardiovert you. You were cardioverted successfully back into normal sinus rhythm . Your tire fabric inspector has recommended that you STOP Multaq and START Amiodarone twice a day for at least 1 month. You should start this TOMORROW (08/31/2024) as we have already dosed you with a similar medication, today. Follow up with your tire fabric inspector and your primary care provider. Return to the emergency department immediately if your symptoms worsen or if you develop any dizziness, shortness of breath, difficulty breathing, chest pain, blurry vision, loss of vision, nausea, vomiting, abdominal pain, fever, chills, back pain, or any other complaints. Prescriptions: New amiodarone 200 mg tablet 200 mg PO BID 30 Days Qty: 60 0RF Continued Xarelto 20 mg tablet 20 mg PO DAILY Qty: 90 3RF amlodipine 2.5 mg tablet 2.5 mg PO DAILY Qty: 90 3RF Discontinued Multaq 400 mg tablet 400 mg PO BID Qty: 180 3RF No Action latanoprost 0.005 % drops 1 drp ophthalmic (eye) BEDTIME ketorolac 0.5 % drops 1 drp ophthalmic-Left DAILY levothyroxine 50 mcg tablet 50 mcg PO DAILY@0600 calcium carbonate [Calcium 600] 600 mg calcium (1,500 mg) Tablet 600 mg PO DAILY cholecalciferol (vitamin D3) [Vitamin D3] 50 mcg (2,000 unit) Tablet 50 mcg PO DAILY Centrum Silver Women 8 mg iron-400 mcg-50 mcg Tablet 1 tab PO DAILY Referrals: [facility] [Provider Group] Igor Perry MD [Primary Care Provider] - Interventions: ED Discharge Assessment Last Done: 08/31/24 14:08 Discharge Date/Time: 08/31/24 14:11 Print Language: Japanese
[2024-08-31 09:27] LABS: MANUAL DIFF FLAG NO
[2024-08-31 09:31] LABS: Basophils Percent Auto 0.2 % (0-2); Eosinophils Percent Auto 0.4 % (0-4); Hematocrit 33.2 % (37.0-47.0); Hemoglobin 10.6 g/dl (12.0-16.0); Imm Gran Abs Auto 0.01 X10*3/uL (0.00-0.03); Imm Gran Pct Auto 0.2 % (0.0-0.4); Lymphocytes Absolute Auto 0.5 X10*3/uL (1.2-4.9); Lymphocytes Percent Auto 9.4 % (20-40); Mean Corpuscular HGB Conc 31.9 g/dl (31.0-35.0); Mean Corpuscular Hemoglobin 19.9 pg (27.0-33.0); Mean Platelet Volume 10.9 fL (9.4-12.3); Monocytes Absolute Auto 0.3 X10*3/uL (0.1-1.2); Monocytes Percent Auto 6.6 % (2-11); Neutrophils Absolute Auto 4.1 x10*3/uL (2.0-8.3); Neutrophils Percent Auto 83.2 % (45-73); Platelet Count 240 X10*3/uL (160-400); Red Blood Count 5.32 X10*6/uL (4.20-5.50); Red Cell Distribution Width 16.6 % (11.0-16.0)
[2024-08-31 09:32] LABS: Mean Corpuscular Volume 62.4 fL (80.0-98.0)
[2024-08-31 09:37] LABS: INTERNATIONAL NORM RATIO 1.4 (0.9-1.1); Prothrombin Time 15.8 SEC (10.9-12.4)
[2024-08-31 09:45] LABS: Alanine Aminotransferase 16 U/L (0-31); Albumin Level 4.3 g/dL (3.5-5.0); Alkaline Phosphatase 64 U/L (39-117); Anion Gap 9 (12-20); Aspartate Amino Transferase 25 U/L (5-31); Bilirubin Direct 0.3 mg/dL (0.0-0.5); Bilirubin Total 0.7 mg/dL (0.0-1.0); Blood Urea Nitrogen 23 mg/dL (9-16); Calcium 9.6 mg/dL (8.4-10.2); Carbon Dioxide 29 mmol/L (22-29); Chloride 99 mmol/L (96-108); Creatinine Clr Calc Pharmacy 27.6; Estimated Glomerular Filt Rate 50; Glucose Random 116 mg/dL (60-115); Lipase 13 U/L (8-78); Potassium 3.9 mmol/L (3.3-5.1); Sodium 133 mmol/L (135-145); Total Protein 7.8 g/dL (6.5-8.0)
[2024-08-31 09:53] LABS: Troponin-I High Sensitivity 3.6 ng/L (<3.5-17.0)
[2024-08-31] MEDS: propofoL 200 MG/20 ML VIAL 100 MG IVPUSH (12:44)
--- NOTE | 2024-08-31 12:55 | ECG_ITS ---
Test Reason : post cardioversion Blood Pressure : / mmHG Vent. Rate : 073 BPM Atrial Rate : 073 BPM P-R Int : 180 ms QRS Dur : 082 ms QT Int : 412 ms P-R-T Axes : 086 -13 053 degrees QTc Int : 453 ms Normal sinus rhythm Normal ECG When compared with ECG of 31-AUG-2024 08:45, Sinus rhythm has replaced Atrial fibrillation Referred By: Isa Lancaster Electronically Signed By:LUIS ALBERTO MCMANUS MD
[2024-08-31] MEDS: Metoprolol Succinate ER 25 MG TAB.ER.24H PO (13:31)
--- NOTE | 2024-08-31 14:11 | PC.NURSE ---
fully alert, speech clear, skin wpd, nad
--- OUTSIDE RECORDS SUMMARY | 2024-09-02 13:13 | XMS_ITS | Continuity of Care Document ---
Author Organization [facility] lt Address [address] [place] [address]- Care Team Providers Care Program Coordinator Executive Education Name Role Phone Vicky LUQUE, Igor Guevara Primary Care Physician [phone] [facility] [place] Date(s): 07/10/24 - 08/09/24 [facility] Adult [address] [place] [address]- Encounter Type: Triage Allergies, Adverse Reactions, Alerts Substance Criticality Severity Reaction Reaction Severity Status dorzolamide ophthalmic diarrhea Active Fosamax Throat closes Active Garlic 1 Active 1Makes pt ill. Immunizations Given and Recorded Vaccine Date Status Refusal Reason influenza virus vaccine, inactivated 06/28/22 Tom rded influenza virus vaccine, inactivated 06/01/21 Tom rded influenza virus vaccine, inactivated 1 06/20/18 Gi darlene influenza virus vaccine, inactivated 2 06/21/17 Re corded influenza virus vaccine, inactivated 3 07/10/16 Re corded influenza virus vaccine, inactivated 06/17/15 Tom rded influenza virus vaccine, inactivated 06/07/14 Give n influenza virus vaccine, inactivated 06/29/13 Give n influenza virus vaccine, inactivated 06/19/10 Tom rded influenza virus vaccine, inactivated 07/01/08 Tom rded influenza virus vaccine, inactivated 06/19/07 Tom rded [id number] 12y+ bivalent booster vax 06/11/22 Recorded SARS-CoV-2 (COVID-19) mRNA BNT-162b2 vac 07/07/21 Recorded SARS-CoV-2 (COVID-19) mRNA BNT-162b2 vac 10/16/20 Recorded SARS-CoV-2 (COVID-19) mRNA BNT-162b2 vac 09/29/20 Recorded Influenza Virus Vaccine (oldterm) 05/25/20 Recorde d pneumococcal 13-valent vaccine 12/06/14 Given tetanus/diphtheria/pertussis, acel(Tdap) 06/07/14 Given Fluzone (oldterm) 06/02/12 Given Pneumococcal Vaccine (oldterm) 04/29/06 Given diphtheria-tetanus toxoids (DT) 04/29/06 Given tetanus-diphtheria toxoids (Td) 04/29/06 Recorded 1Result Comment: [06/20/2018] [facility]: [id number] 2Location History: [facility] 3Location History[facility] Medications amLODIPine 2.5 mg oral tablet 1 tablet, By Mouth, Daily, # 90 tablet, 0 Refills, Maintenance, 10/31/23 9:49:00 AM EST, [id number], 151.2, cm, 06/12/23 12:17:00 EDT, Height, 55, kg, 10/17/22 18:11:00 EST, Dry Weight Start Date: 10/31/23 Status: Ordered Quantity: 90.0 Unit: tablet Repeat number: 1 ketorolac 0.5% ophthalmic solution 1 drops, Daily, PRN for itching, 0 Refills, Maintenance, 10/17/22 6:34:00 PM EST, Solution, Partial fill upon patient request if the prescription is for a schedule II opioid drug. Start Date: 10/17/22 Status: Ordered Repeat number: 1 latanoprost ophthalmic 0.005% solution 1 drops, Eyes, Both, Daily at bedtime, # 2 mL, 11 Refills, Maintenance, 01/28/12 1:34:47 PM EDT, Ophth Solution Start Date: 01/28/12 Stop Date: 01/22/13 Status: Ordered Quantity: 2.0 Unit: mL Repeat number: 12 levothyroxine 0.05 mg oral tablet 1 tablet, By Mouth, Daily, # 90 tablet, 3 Refills, Maintenance, 07/13/24 12:23:00 PM EDT, [facility], 151.2, cm, 01/16/24 10:56:00 EDT, Height, 55, kg, 10/17/22 18:11:00 EST, Dry Weight Start Date: 07/13/24 Status: Ordered Quantity: 90.0 Unit: tablet Repeat number: 1 Multaq 400 mg oral tablet 1 tablet = 400 mg, By Mouth, 2 times a day, 0 Refills, Maintenance, 01/16/24 10:49:00 AM EDT, Partial fill upon patient request if the prescription is for a schedule II opioid drug. Start Date: 01/16/24 Status: Ordered Repeat number: 1 Xarelto 20 mg oral tablet 1 tablet = 20 mg, By Mouth, Daily before dinner, documented med [employer] started pt on, # 30 tablet, 0 Refills, Maintenance, 12/12/22 11:49:00 AM EDT, Partial fill upon patient request if the prescription is for a schedule II opioid drug. Start Date: 12/12/22 Status: Ordered Quantity: 30.0 Unit: tablet Repeat number: 1 Problem List Condition Confirmation Course Effective Dates Status Health Status Informant Anemia Confirmed Active Wrist fracture Confirmed Active Glaucoma Confirmed Active Hemorrhoid Confirmed Active Hx of sickle cell trait Confirmed Active Hypertension Confirmed Active Hypothyroidism Confirmed Active Intertrochanteric fracture Confirmed Active Osteoporosis Confirmed Active Paroxysmal A-fib Confirmed Active Retinopathy Confirmed Active Syncope Confirmed Active Social History Social History Type Response Smoking Status Never smoker entered on: 03/21/16 Sex Sex Representation Female (finding) Patient Care team information Care Team Personnel Name: Melina Hopper RN Position: [facility] RN Member Role: Primary Care Nurse Name: Igor Perry MD Position: [facility] Physician - Primary Care Member Role: PCP Address: [address] [place] [phone]- Telecom: Care Team Related Persons Name: DANIA SQUIRES Name: SHIVAM RODRIGUEZ Insurance Providers Guarantor name: ASHLI DEWITTO Health Plan Information #: 1 Payer: MEDICARE PART B OUTPT Member Number: NA Policy Number: NA Group Number: NA Health Plan Information #: 2 Payer: MEDEX Member Number: NA Policy Number: NA Group Number: NA
--- OUTSIDE RECORDS SUMMARY | 2024-09-02 13:13 | XMS_ITS | Continuity of Care Document ---
Author Organization [facility] Address [address] [place] [address]- Care Team Providers Care Sales Associate Fishing Name Role Phone Vicky LUQUE, Igor Guevara Primary Care Physician [phone] Encounter [facility] [place] Date(s): 07/13/24 - 08/12/24 [facility] Adult [address] [place] [address]- Encounter Type: Triage Allergies, Adverse Reactions, Alerts [...] influenza virus vaccine, inactivated 06/19/07 Tom rded [id number] 12y+ bivalent booster vax 06/11/22 Recorded SARS-CoV-2 [...] toxoids (Td) 04/29/06 Recorded 1Result Comment: [06/20/2018] 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 on, # 30 tablet, 0 [...] Team Personnel Name: Melina Hopper RN Position: [facility] RN Member Role: Primary Care Nurse Name: Igor Perry MD Position: [facility] Physician - Primary Care Member Role: PCP Address: [address] [place] [phone]- Telecom: Care Team Related Persons Name: DANIA SQUIRES Name: SHIVAM RODRIGUEZ Insurance Providers Guarantor name: ASHLI TEJEDA Health Plan Information #: 1 Payer: MEDICARE PART B OUTPT Member Number: NA Policy Number: NA Group Number: NA Health Plan Information #: 2 Payer: MEDEX Member Number: NA Policy Number: NA Group Number: NA
--- OUTSIDE RECORDS SUMMARY | 2024-09-02 13:13 | XMS_ITS | Clinical Summary ---
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, OTHER SITE, 7THD Active 10-31 00:00: 00 UNSPECIFIED HEMORRHOIDS Active 10-18 00:00: 00 ESSENTIAL (PRIMARY) HYPERTENSION Active 10-18 00:00: 00 HYPOTHYROIDI SM, UNSPECIFIED Active 10-18 00:00: 00 ANEMIA, UNSPECIFIED Active 10-18 00:00: 00 UNSPECIFIED ATRIAL FIBRILLATION Active 10-18 00:00: 00 UNSPECIFIED GLAUCOMA Active 10-18 00:00: 00 UNSPECIFIED BACKGROUND RETINOPATHY Active 09-23 00:00: 00 BENIGN PAROXYSMAL VERTIGO, UNSPECIFIED EAR Active 09-23 00:00: 00 HISTORY OF FALLING Active 10-31 00:00: 00 MEDICAL ASSOCIATE (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 OF ANTICOAGULAN TS Active 09-23 00:00: 00 MEDICAL ASSOCIATE (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 OF OPIATE ANALGESIC Active 09-23 00:00: 00 MEDICAL ASSOCIATE (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 OF INHALED STEROIDS Active 09-23 00:00: 00 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 Ordering Clinician Indication Dosage Frequency Signature (SIG) Comments Components Eliquis 2.5 mg tablet 10-29 00:00: 00 11-14 23:59 :00 No [id number] AFIB 1 tablet 2 TIMES DAILY 1 tablet 2 TIMES DAILY (route: oral) Med Classific ation: Hematolog ical Agents levothyroxi ne 50 mcg tablet 10-29 00:00: 00 Yes [id number] THYROID 1 tablet DAILY 1 tablet DAILY (route: oral) Med Classific ation: Endocrine acetaminoph en 325 mg capsule 10-31 00:00: 00 Yes [id number] PAIN 2 capsule EVERY 6 HOURS 2 capsule EVERY 6 HOURS (route: oral) Med Classific ation: Analgesic , Anti-infl ammatory or Antipyret ic ketorolac 0.5 % eye drops 10-31 00:00: 00 Yes [id number] EYE ITCHING 1 drops DAILY 1 drops DAILY (route: ophthalmic (eye)) Med Classific ation: Ophthalmi c Agents latanoprost (PF) 0.005 % eye drops 10-31 00:00: 00 Yes [id number] EY 1 drops BEDTIME 1 drops BEDTIME (route: ophthalmic (eye)) Med Classific ation: Ophthalmi c Agents meclizine 12.5 mg tablet 10-31 00:00: 00 Yes [id number] DIZZYNESS 1 tablet 3 TIMES DAILY 1 tablet 3 TIMES DAILY (route: oral) Med Classific ation: Gastroint estinal Therapy Agents metoprolol succinate ER 25 mg tablet,exte nded release 24 hr 10-31 00:00: 00 Yes [id number] HTN 1 tablet DAILY 1 tablet DAILY (route: oral) Med Classific ation: Cardiovas cular Therapy Agents Senna with Docusate Sodium 8.6 mg-50 mg tablet 10-31 00:00: 00 Yes [id number] constipatio n 2 tablet 2 TIMES DAILY 2 tablet 2 TIMES DAILY (route: oral) Med Classific ation: Gastroint estinal Therapy Agents Xarelto 20 mg tablet 11-14 00:00: 00 Yes [id number] ANTICOAGULA TION Per instruc tions DAILY Per instructio ns DAILY (route: oral) Med Classific ation: Hematolog ical Agents Vital Signs Vital Name Observation Time Observation Value Commen ts Temperature 2022-12-28 11:27:00.000 97.1 [degF] Temperature 2022-12-25 12:15:00.000 97.4 [degF] Temperature 2022-12-20 12:17:00.000 97.5 [degF] Temperature 2022-12-13 12:03:00.000 97.3 [degF] Temperature 2022-12-11 13:30:00.000 97.4 [degF] Temperature 2022-12-06 14:12:00.000 97.5 [degF] Temperature 2022-11-29 13:51:00.000 97.7 [degF] Temperature 2022-11-27 11:16:00.000 98.1 [degF] Temperature 2022-11-21 15:38:00.000 98.1 [degF] Temperature 2022-11-16 13:58:00.000 97.1 [degF] Temperature 2022-11-15 13:42:00.000 97.2 [degF] Temperature 2022-11-13 10:06:00.000 97 [degF] Temperature 2022-11-09 12:15:00.000 97.4 [degF] Temperature 2022-11-07 14:20:00.000 98.5 [degF] Temperature 2022-11-06 12:18:00.000 97.4 [degF] Temperature 2022-11-02 15:43:00.000 97.3 [degF] Temperature 2022-11-02 11:26:00.000 97.3 [degF] Temperature 2022-10-31 13:24:00.000 97.4 [degF] BMI (%) 2022-10-31 13:24:00.000 21 kg/m2 Height 2022-10-31 13:24:00.000 62 [in_us] Pulse 2022-12-28 11:27:00.000 85 /min Pulse 2022-12-25 12:15:00.000 74 /min Pulse 2022-12-20 12:17:00.000 70 /min Pulse 2022-12-13 12:03:00.000 70 /min Pulse 2022-12-11 13:30:00.000 64 /min Pulse 2022-12-06 14:12:00.000 67 /min Pulse 2022-11-29 13:51:00.000 69 /min Pulse 2022-11-27 11:16:00.000 68 /min Pulse 2022-11-21 15:38:00.000 78 /min Pulse 2022-11-16 13:58:00.000 68 /min Pulse 2022-11-15 13:42:00.000 80 /min Pulse 2022-11-13 10:06:00.000 72 /min Pulse 2022-11-09 12:15:00.000 80 /min Pulse 2022-11-07 14:20:00.000 66 /min Pulse 2022-11-06 12:18:00.000 74 /min Pulse 2022-11-02 16:34:00.000 75 /min Pulse 2022-11-02 11:26:00.000 88 /min Pulse 2022-10-31 13:24:00.000 82 /min O2 Saturation (%) 2022-12-28 11:27:00.000 98 % O2 Saturation (%) 2022-12-25 12:15:00.000 99 % O2 Saturation (%) 2022-12-13 12:03:00.000 100 % O2 Saturation (%) 2022-12-11 13:30:00.000 100 % O2 Saturation (%) 2022-11-29 13:51:00.000 98 % O2 Saturation (%) 2022-11-27 11:16:00.000 98 % O2 Saturation (%) 2022-11-13 10:06:00.000 100 % O2 Saturation (%) 2022-11-06 12:18:00.000 99 % O2 Saturation (%) 2022-11-02 16:34:00.000 98 % O2 Saturation (%) 2022-10-31 13:24:00.000 100 % Respirations 2022-12-28 11:27:00.000 18 /min Respirations 2022-12-25 12:15:00.000 18 /min Respirations 2022-12-20 12:17:00.000 18 /min Respirations 2022-12-13 12:03:00.000 18 /min Respirations 2022-12-11 13:30:00.000 18 /min Respirations 2022-12-06 14:12:00.000 18 /min Respirations 2022-11-29 13:51:00.000 17 /min Respirations 2022-11-27 11:16:00.000 18 /min Respirations 2022-11-21 15:38:00.000 18 /min Respirations 2022-11-16 13:58:00.000 18 /min Respirations 2022-11-15 13:42:00.000 18 /min Respirations 2022-11-13 10:06:00.000 20 /min Respirations 2022-11-09 12:15:00.000 18 /min Respirations 2022-11-07 14:20:00.000 18 /min Respirations 2022-11-06 12:18:00.000 18 /min Respirations 2022-11-02 16:34:00.000 16 /min Respirations 2022-11-02 11:26:00.000 18 /min Respirations 2022-10-31 13:24:00.000 18 /min Weight (lbs) 2022-10-31 13:24:00.000 115 [lb_av] Systolic Blood Pressure 2022-12-28 11:27:00.000 124 mm [Hg] Systolic Blood Pressure 2022-12-25 12:15:00.000 116 mm [Hg] Systolic Blood Pressure 2022-12-20 12:17:00.000 136 mm [Hg] Systolic Blood Pressure 2022-12-13 12:03:00.000 108 mm [Hg] Systolic Blood Pressure 2022-12-11 13:30:00.000 118 mm [Hg] Systolic Blood Pressure 2022-12-06 14:12:00.000 124 mm [Hg] Systolic Blood Pressure 2022-11-29 13:51:00.000 110 mm [Hg] Systolic Blood Pressure 2022-11-27 11:16:00.000 126 mm [Hg] Systolic Blood Pressure 2022-11-21 15:38:00.000 122 mm [Hg] Systolic Blood Pressure 2022-11-16 13:58:00.000 146 mm [Hg] Systolic Blood Pressure 2022-11-15 13:42:00.000 130 mm [Hg] Systolic Blood Pressure 2022-11-13 10:06:00.000 132 mm [Hg] Systolic Blood Pressure 2022-11-09 12:15:00.000 122 mm [Hg] Systolic Blood Pressure 2022-11-07 14:20:00.000 122 mm [Hg] Systolic Blood Pressure 2022-11-06 12:18:00.000 116 mm [Hg] Systolic Blood Pressure 2022-11-02 16:40:00.000 140 mm [Hg] Systolic Blood Pressure 2022-11-02 11:26:00.000 142 mm [Hg] Systolic Blood Pressure 2022-10-31 13:24:00.000 118 mm [Hg] Diastolic Blood Pressure 2022-12-28 11:27:00.000 68 mm [Hg] Diastolic Blood Pressure 2022-12-25 12:15:00.000 72 mm [Hg] Diastolic Blood Pressure 2022-12-20 12:17:00.000 72 mm [Hg] Diastolic Blood Pressure 2022-12-13 12:03:00.000 66 mm [Hg] Diastolic Blood Pressure 2022-12-11 13:30:00.000 64 mm [Hg] Diastolic Blood Pressure 2022-12-06 14:12:00.000 72 mm [Hg] Diastolic Blood Pressure 2022-11-29 13:51:00.000 80 mm [Hg] Diastolic Blood Pressure 2022-11-27 11:16:00.000 68 mm [Hg] Diastolic Blood Pressure 2022-11-21 15:38:00.000 70 mm [Hg] Diastolic Blood Pressure 2022-11-16 13:58:00.000 80 mm [Hg] Diastolic Blood Pressure 2022-11-15 13:42:00.000 68 mm [Hg] Diastolic Blood Pressure 2022-11-13 10:06:00.000 70 mm [Hg] Diastolic Blood Pressure 2022-11-09 12:15:00.000 70 mm [Hg] Diastolic Blood Pressure 2022-11-07 14:20:00.000 70 mm [Hg] Diastolic Blood Pressure 2022-11-06 12:18:00.000 72 mm [Hg] Diastolic Blood Pressure 2022-11-02 16:40:00.000 82 mm [Hg] Diastolic Blood Pressure 2022-11-02 11:26:00.000 82 mm [Hg] Diastolic Blood Pressure 2022-10-31 13:24:00.000 64 mm [Hg] Plan of Treatment Planned Activity Planned Date Details Comments Future Scheduled Test MEDICATION MANAGEMENT; SKILLED NURSE TO REVIEW MEDICATIONS FOR INTERACTIONS, EFFECTIVENESS OF DRUG THERAPY, AND SIGNS/SYMPTOMS OF ADVERSE REACTIONS. MAY INSTRUCT AND REINFORCE MEDICATION TEACHING RELATED TO THE USE OF MEDICATIONS, DOSAGE, FREQUENCY, PURPOSE, SIDE EFFECTS, AND TO REPORT COMPLICATIONS. [code = MEDICATION MANAGEMENT; SKILLED NURSE TO REVIEW MEDICATIONS FOR INTERACTIONS, EFFECTIVENESS OF DRUG THERAPY, AND SIGNS/SYMPTOMS OF ADVERSE REACTIONS. MAY INSTRUCT AND REINFORCE MEDICATION TEACHING RELATED TO THE USE OF MEDICATIONS, DOSAGE, FREQUENCY, PURPOSE, SIDE EFFECTS, AND TO REPORT COMPLICATIONS. ] Future Scheduled Test ANTICOAGUL ATION MANAGEMENT; SKILLED NURSE TO ASSESS, TEACH, AND MONITOR EFFECTIVENESS OF ANTICOAGULATION THERAPY. SKILLED NURSE TO INSTRUCT ON SIGNS AND SYMPTOMS OF BLEEDING/ADVERSE REACTIONS TO REPORT TO PHYSICIAN. [code = ANTICOAGULATION MANAGEMENT; SKILLED NURSE TO ASSESS, TEACH, AND MONITOR EFFECTIVENESS OF ANTICOAGULATION THERAPY. SKILLED NURSE TO INSTRUCT ON SIGNS AND SYMPTOMS OF BLEEDING/ADVERSE REACTIONS TO REPORT TO PHYSICIAN. ] Future Scheduled Test FALL REDUC TION MANAGEMENT; NURSING TO PROVIDE SKILLED ASSESSMENT, EDUCATION, AND INTERVENTION TO IDENTIFY FALL RISK FACTORS SUCH MEDICATIONS THAT MAY CAUSE DIZZINESS, CHRONIC DISEASES, PSYCHOLOGICAL FACTORS, AND EMPOWER/EDUCATE PATIENT/CAREGIVER TO MINIMIZE FALL RISK. [code = FALL REDUCTION MANAGEMENT; NURSING TO PROVIDE SKILLED ASSESSMENT, EDUCATION, AND INTERVENTION TO IDENTIFY FALL RISK FACTORS SUCH MEDICATIONS THAT MAY CAUSE DIZZINESS, CHRONIC DISEASES, PSYCHOLOGICAL FACTORS, AND EMPOWER/EDUCATE PATIENT/CAREGIVER TO MINIMIZE FALL RISK. ] Future Scheduled Test SKILLED NU RSE TO ASSESS, EVALUATE, AND DEVELOP AN INDIVIDUALIZED PLAN OF CARE. AGENCY MAY ACCEPT ORDERS FROM CONSULTING PHYSICIANS. SN TO OBSERVE/ASSESS RISK FOR FALLS AND INSTRUCT IN FALL PREVENTION, HOME SAFETY, MEDICATION MANAGEMENT, INFECTION PREVENTION, AND NUTRITION MANAGEMENT. SN MAY PERFORM O2 SATURATION LEVEL ON ADMISSION AND PRN TO ASSESS PATIENT, WITH NOTIFICATION TO THE PHYSICIAN IF SATURATION IS 90% IN THE ABSENCE OF MORE SPECIFIC PARAMETERS FROM THE PHYSICIAN. AGENCY MAY PERFORM A RESUMPTION OF CARE VISIT FOLLOWING ANY HOSPITAL ADMISSION. SKILLED NURSE TO ASSESS/EVALUATE CO-MORBID CONDITIONS AND ANY NEW CONDITIONS THAT PRESENT THEMSELVES DURING THIS EPISODE TO IDENTIFY CHANGES AND INTERVENE TO MINIMIZE COMPLICATIONS. [code = SKILLED NURSE TO ASSESS, EVALUATE, AND DEVELOP AN INDIVIDUALIZED PLAN OF CARE. AGENCY MAY ACCEPT ORDERS FROM CONSULTING PHYSICIANS. SN TO OBSERVE/ASSESS RISK FOR FALLS AND INSTRUCT IN FALL PREVENTION, HOME SAFETY, MEDICATION MANAGEMENT, INFECTION PREVENTION, AND NUTRITION MANAGEMENT. SN MAY PERFORM O2 SATURATION LEVEL ON ADMISSION AND PRN TO ASSESS PATIENT, WITH NOTIFICATION TO THE PHYSICIAN IF SATURATION IS 90% IN THE ABSENCE OF MORE SPECIFIC PARAMETERS FROM THE PHYSICIAN. AGENCY MAY PERFORM A RESUMPTION OF CARE VISIT FOLLOWING ANY HOSPITAL ADMISSION. SKILLED NURSE TO ASSESS/EVALUATE CO-MORBID CONDITIONS AND ANY NEW CONDITIONS THAT PRESENT THEMSELVES DURING THIS EPISODE TO IDENTIFY CHANGES AND INTERVENE TO MINIMIZE COMPLICATIONS.] Future Scheduled Test PAIN MANAG EMENT; SKILLED NURSE TO OBSERVE, ASSESS, AND PROVIDE EDUCATION ON PAIN MANAGEMENT TECHNIQUES. [code = PAIN MANAGEMENT; SKILLED NURSE TO OBSERVE, ASSESS, AND PROVIDE EDUCATION ON PAIN MANAGEMENT TECHNIQUES.] Future Scheduled Test RISK FOR H OSPITALIZATION; SKILLED NURSE TO INSTRUCT PATIENT/CAREGIVER ON RISK FOR HOSPITALIZATION/EMERGENCY ROOM VISITS, TEACH SIGNS AND SYMPTOMS THAT PUT PATIENT AT RISK, WHEN TO NOTIFY NURSE/PHYSICIAN OF COMPLICATIONS/DECLINE, AND WHEN TO CALL 911. [code = RISK FOR HOSPITALIZATION; SKILLED NURSE TO INSTRUCT PATIENT/CAREGIVER ON RISK FOR HOSPITALIZATION/EMERGENCY ROOM VISITS, TEACH SIGNS AND SYMPTOMS THAT PUT PATIENT AT RISK, WHEN TO NOTIFY NURSE/PHYSICIAN OF COMPLICATIONS/DECLINE, AND WHEN TO CALL 911.] Future Scheduled Test CARDIOVASC ULAR SYSTEM; SKILLED NURSE TO ASSESS AND TEACH RELATED TO ALTERED CARDIOVASCULAR STATUS TO MINIMIZE COMPLICATIONS AND REDUCE HOSPITALIZATION. [code = CARDIOVASCULAR SYSTEM; SKILLED NURSE TO ASSESS AND TEACH RELATED TO ALTERED CARDIOVASCULAR STATUS TO MINIMIZE COMPLICATIONS AND REDUCE HOSPITALIZATION.] Future Scheduled Test HYPERTENSI ON MANAGEMENT; SKILLED NURSE TO ASSESS/TEACH WARNING SIGNS AND SYMPTOMS TO AVOID HOSPITALIZATION. [code = HYPERTENSION MANAGEMENT; SKILLED NURSE TO ASSESS/TEACH WARNING SIGNS AND SYMPTOMS TO AVOID HOSPITALIZATION. ] Future Scheduled Test ATRIAL FIB RILLATION MANAGEMENT; SKILLED NURSE TO ASSESS/TEACH WARNING SIGNS AND SYMPTOMS TO AVOID HOSPITALIZATION. [code = ATRIAL FIBRILLATION MANAGEMENT; SKILLED NURSE TO ASSESS/TEACH WARNING SIGNS AND SYMPTOMS TO AVOID HOSPITALIZATION.] Future Scheduled Test AGENCY MAY PERFORM A RESUMPTION OF CARE VISIT FOLLOWING ANY HOSPITAL ADMISSION. OCCUPATIONAL THERAPY TO EVALUATE, ASSESS, AND MONITOR, PROVIDE SKILLED THERAPEUTIC INTERVENTION, ACTIVITY, EDUCATION, AND TRAINING TO ADDRESS; BATHING/SHOWERING (OT) TOILETING (OT) DRESSING (OT) MODIFIED XAVIER INDEX (OT) MEAL PREPARATION AND CLEANUP (OT) EQUILIBRIUM REACTIONS/BALANCE (OT) OXYGEN SATURATION (OT); NOTIFY MD IF O2 SATS BELOW 90% AFTER 10 MIN OF REST FALL REDUCTION (OT) SURGICAL AFTERCARE EDUCATION (OT) [code = AGENCY MAY PERFORM A RESUMPTION OF CARE VISIT FOLLOWING ANY HOSPITAL ADMISSION. OCCUPATIONAL THERAPY TO EVALUATE, ASSESS, AND MONITOR, PROVIDE SKILLED THERAPEUTIC INTERVENTION, ACTIVITY, EDUCATION, AND TRAINING TO ADDRESS; BATHING/SHOWERING (OT) TOILETING (OT) DRESSING (OT) MODIFIED XAVIER INDEX (OT) MEAL PREPARATION AND CLEANUP (OT) EQUILIBRIUM REACTIONS/BALANCE (OT) OXYGEN SATURATION (OT); NOTIFY MD IF O2 SATS BELOW 90% AFTER 10 MIN OF REST FALL REDUCTION (OT) SURGICAL AFTERCARE EDUCATION (OT) ] Future Scheduled Test AGENCY MAY PERFORM A RESUMPTION OF CARE VISIT FOLLOWING ANY HOSPITAL ADMISSION. PHYSICAL THERAPY TO EVALUATE, ASSESS AND MONITOR, PROVIDE SKILLED THERAPEUTIC INTERVENTION, ACTIVITY, EDUCATION, AND TRAINING TO ADDRESS: TRANSFER TRAINING (PT) GAIT TRAINING (PT) NEUROMUSCULAR RE-EDUCATION / BALANCE RETRAINING (PT) THERAPEUTIC EXERCISES (PT) STAIR TRAINING (PT) OXYGEN SATURATION (PT). NOTIFY MD IF 02SATS BELOW 90% AFTER 10 MIN OF REST. ORTHOPEDIC SURGICAL AFTERCARE (PT) MAY TEACH PATIENT APPLICATION OF CRYOTHERAPY FOR PAIN AND/OR SWELLING UP TO 20 MIN AT A TIME OVER INCISION/JOINT FEMUR FRACTURE/ORIF SELF-MANAGEMENT (PT) IDENTIFY FALL RISK FACTORS AND ESTABLISH HOME EXERCISE PROGRAM TO MINIMIZE FALL RISK. MAY TEACH THE PATIENT FLOOR RECOVERY WHEN CLINICALLY APPROPRIATE (PT) [code = AGENCY MAY PERFORM A RESUMPTION OF CARE VISIT FOLLOWING ANY HOSPITAL ADMISSION. PHYSICAL THERAPY TO EVALUATE, ASSESS AND MONITOR, PROVIDE SKILLED THERAPEUTIC INTERVENTION, ACTIVITY, EDUCATION, AND TRAINING TO ADDRESS: TRANSFER TRAINING (PT) GAIT TRAINING (PT) NEUROMUSCULAR RE-EDUCATION / BALANCE RETRAINING (PT) THERAPEUTIC EXERCISES (PT) STAIR TRAINING (PT) OXYGEN SATURATION (PT). NOTIFY MD IF 02SATS BELOW 90% AFTER 10 MIN OF REST. ORTHOPEDIC SURGICAL AFTERCARE (PT) MAY TEACH PATIENT APPLICATION OF CRYOTHERAPY FOR PAIN AND/OR SWELLING UP TO 20 MIN AT A TIME OVER INCISION/JOINT FEMUR FRACTURE/ORIF SELF-MANAGEMENT (PT) IDENTIFY FALL RISK FACTORS AND ESTABLISH HOME EXERCISE PROGRAM TO MINIMIZE FALL RISK. MAY TEACH THE PATIENT FLOOR RECOVERY WHEN CLINICALLY APPROPRIATE (PT)] Goal 2022-12-28 Patient Goal - T O GET BACK TO NORMAL AND REGAIN MY STRENGTH Goal Provider Goal - PATIENT/CAREGIVER TO VERBALIZE, AND CONSISTENTLY DEMONSTRATE EFFECTIVE, SAFE MANAGEMENT OF MEDICATION INCLUDING KNOWLEDGE OF EFFECTIVENESS, POTENTIAL SIDE EFFECTS AND DRUG REACTIONS AND WHEN TO CONTACT THE APPROPRIATE CARE PROVIDER. PATIENT/CAREGIVER WILL BE ABLE TO VERBALIZE UNDERSTANDING OF MEDICATION REGIMEN AND ACCURATELY TAKE MEDICATIONS PRESCRIBED WITHOUT ADVERSE EFFECTS BY EOE. Goal Provider Goal - INEFFECTIVE ANTICOAGULATION THERAPY WILL BE IDENTIFIED AND PROMPTLY REPORTED TO THE PHYSICIAN. PATIENT / CAREGIVER WILL VERBALIZE UNDERSTANDING OF MEASURES TO MAINTAIN EFFECTIVE ANTICOAGULATION THERAPY EOE. Goal Provider Goal - PATIENT/CAREGIVER ABLE TO IDENTIFY FALL RISK FACTORS AND IMPLEMENT STRATEGIES TO MINIMIZE FALL RISK. PATIENT/CAREGIVER WILL VERBALIZE/DEMONSTRATE AN ABILITY TO ADHERE TO FALL REDUCTION SELF MANAGEMENT AND LIFE-STYLE CHANGES AT DISCHARGE. PERSONAL GOAL(S) STATED BY PATIENT/CAREGIVER WILL BE MET BY EOE. Goal Provider Goal - A PLAN OF CARE WILL BE ESTABLISHED THAT MEETS THE PATIENTS NEEDS. PATIENT WILL DEMONSTRATE OXYGEN SATURATION WITHIN NORMAL LIMITS OR PATIENTS OPTIMAL LEVEL ESTABLISHED BY THE PHYSICIAN THROUGHOUT CARE. CHANGES TO CO-MORBID CONDITIONS AND ANY NEW CONDITIONS WILL BE IDENTIFIED AND REPORTED TO THE PHYSICIAN. Goal Provider Goal - PATIENT / CAREGIVER WILL VERBALIZE / DEMONSTRATE UNDERSTANDING OF PAIN CONTROL MEASURES BY 12/29/2022 Goal Provider Goal - PATIENT/CAREGIVER WILL VERBALIZE UNDERSTANDING OF SIGNS AND SYMPTOMS THAT PUT THE PATIENT AT RISK FOR HOSPITALIZATION /EMERGENCY ROOM VISITS, WHEN TO NOTIFY NURSE/PHYSICIAN OF COMPLICATIONS/DECLINE AND WHEN TO CALL 911. Goal Provider Goal - PATIENT / CAREGIVER WILL VERBALIZE/DEMONSTRATE UNDERSTANDING OF MEASURES TO MANAGE ALTERED CARDIOVASCULAR STATUS BY 12/29/2022. Goal Provider Goal - PATIENT / CAREGIVER WILL VERBALIZE/DEMONSTRATE AN ABILITY TO ADHERE TO SELF-MANAGEMENT OF HTN TO MINIMIZE COMPLICATIONS AND AVOID HOSPITALIZATION BY END OF EPISODE. Goal Provider Goal - PATIENT / CAREGIVER WILL VERBALIZE/DEMONSTRATE AN ABILITY TO ADHERE TO SELF-MANAGEMENT OF ATRIAL FIBRILLATION TO MINIMIZE COMPLICATIONS AND AVOID HOSPITALIZATION BY END OF EPISODE. Goal Provider Goal - OT LTG: PATIENT WILL DEMONSTRATE IMPROVED ABILITY TO PERFORM BATHING IN THE SHOWER WITH ADAPTIVE EQUIPMENT AND UTILIZING ENERGY CONSERVATION AND WORK SIMPLIFICATION TECHNIQUES FROM UNABLE TO MODIFIED INDEPENDENCE WITHIN 8 WEEKS. OT LTG: PATIENT WILL DEMONSTRATE IMPROVED ABILITY TO PERFORM SHOWER TRANSFER FROM MOD A TO MODIFIED INDEPENDENCE WITHIN 4 WEEKS. OT STG: PATIENT WILL DEMONSTRATE IMPROVED ABILITY TO PERFORM TOILET TRANSFER FROM CGA TO INDEPENDENT WITHIN 3 WEEKS OT LTG: PATIENT WILL DEMONSTRATE IMPROVED ABILITY TO PERFORM UB/LB DRESSING INCLUDING ITEM RETRIEVAL FROM MIN A TO INDEPENDENCE UTILIZING ADAPTIVE EQUIPMENT NEEDED WITHIN 4 WEEKS OT LTG: PATIENT WILL DEMONSTRATE IMPROVED INDEPENDENCE WITH ACTIVITIES OF DAILY LIVING (ADL) SKILLS EVIDENCED BY AN IMPROVEMENT IN MODIFIED XAVIER INDEX SCORE FROM 68/100 TO 90/100 INDICATING DECREASED DEPENDENCY ON CAREGIVER ASSISTANCE WITHIN 8 WEEKS. OT LTG: PATIENT WILL DEMONSTRATE THE ABILITY TO COMPLETE MEAL PREPA PATIENT WILL MAINTAIN OXYGEN SATURATION WITHIN PHYSICIAN ORDERED PARAMETERS THROUGHOUT THE EPISODE OF CARE. PATIENT/CAREGIVER WILL BE ABLE TO IMPLEMENT OCCUPATIONAL THERAPY EDUCATION RECOMMENDATIONS SPECIFIC TO FALL REDUCTION FOR IMPROVED ADL/IADL COMPLETION AND HOME SAFETY BY DISCHARGE. OT GOAL: PATIENT/CAREGIVER WILL INCORPORATE SURGICAL AFTERCARE PATIENT EMPOWERMENT STRATEGIES INTO DAILY ROUTINE BY DISCHARGE Goal Provider Goal - PT STG: PATIENT WILL DEMONSTRATE IMPROVED TRANSFERS FROM SBA TO INDEPENDENT WITH UE ASSIST WITHIN 3 WEEKS PT STG: PATIENT WILL DEMONSTRATE ADEQUATE STEP LENGTH, FOOT CLEARANCE AND CONSISTENT HEEL STRIKE BILATERALLY TO IMPROVE GAIT PATTERN WITHIN 4 WEEKS PT LTG: PATIENT WILL DEMONSTRATE IMPROVED AMBULATION FROM CGA WITH PLATFORM WALKER TO INDEPENDENT WITHOUT AD WITHIN 9 WEEKS PT LTG: PATIENT WILL DEMONSTRATE IMPROVED BALANCE AND SENSORY INTEGRATION EVIDENCED BY MCTSIB SCORE IMPROVING FROM 2/4 TO 3/4 WITHIN 9 WEEKS PT LTG: PATIENT WILL DEMONSTRATE REDUCED FALL RISK EVIDENCED BY TUG TEST (CUT SCORE >11 SECONDS INDICATES INCREASED FALL RISK) IMPROVING FROM 32 SECONDS TO 15 SECONDS WITHIN 9 WEEKS PT STG: PATIENT WILL DEMONSTRATE INDEPENDENCE WITH LOWER EXTREMITY HOME EXERCISE PROGRAM WITHIN 4 WEEKS PT LTG: PATIENT WILL DEMONSTRATE INCREASED STRENGTH OF LEFT LE FROM 3/5 TO 4+/5 WITHIN 9 WEEKS IN ORDER TO IMPROVE SAFETY AND STABILITY WITH GAIT AND STAIRS PT STG: PATIENT WILL DEMONSTRATE PROPER PACING AND SEQUENCING WITH STAIR MOBILITY WITHIN 3 WEEKS PT LTG: PATIENT WILL DEMONSTRATE IMPROVED ABILITY TO SAFELY NEGOTIATE STAIRS FROM NT TO INDEPENDENT WITHOUT AD WITHIN 9 WEEKS PATIENT WILL MAINTAIN OXYGEN SATURATION WITHIN PHYSICIAN ORDERED PARAMETERS THROUGHOUT EPISODE OF CARE PATIENT WILL DEMONSTRATE NORMAL HEALING FOLLOWING SURGERY WITH NO COMPLICATIONS BY DISCHARGE. PT GOAL: PATIENT WILL DEMONSTRATE OPTIMAL OUTCOMES INCLUDING INCREASED STRENGTH AND MOBILITY WITH NO COMPLICATIONS FOLLOWING FEMUR FRACTURE/ORIF BY DISCHARGE. PATIENT/CAREGIVER WILL DEMONSTRATE ADHERENCE TO FALL REDUCTION SELF MANAGEMENT TO MINIMIZE FALL RISK BY DISCHARGE. Reason for Visit [facility]DEPENDENT IN THE COMMUNITY Encounters Start Date/Time End Date/Time Encounter Type Admission Type [facility] Care Department Encounter ID Discharge Date Discharge Status Discharge Condition Discharge Reason Percent Goals Met 2022-10-31 00:00:00 2022-12-28 00:00:00 Outpatient NEW ADMISSION HARISH [facility]OMPS[facility] [id number] 2022-12-28 00:00:00 DISCHARGE TO HOME OR SELF CARE [facility] HH OR [facility]- GOALS MET 97.96
--- OUTSIDE RECORDS SUMMARY | 2024-09-02 13:59 | XMS_ITS | Clinical Summary ---
Author Organization Unknown Care Team Providers Care Client Reporting Associate Name Role Phone SANDEEP LUQUE, KANNAN Unavailable Unavailable LEROY RN, GUSTAVO Unavailable Unavailable DONNA PT, HARISH Unavailable Unavailable Payers Payer Name Policy Type Policy Number Effective Date Expira tion Date MEDICARE.NGS.PDGM [id number] Problems Condition Name Condition Details Condition Category [...] HISTORY OF FALLING Active 10-31 00:00: 00 [employer] (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 OF ANTICOAGULAN TS Active 09-23 00:00: 00 [employer] (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 OF OPIATE ANALGESIC Active 09-23 00:00: 00 [employer] (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 OF INHALED STEROIDS Active 09-23 [...] 10-29 00:00: 00 11-14 23:59 :00 No [id number] AFIB 1 tablet 2 TIMES DAILY 1 tablet 2 TIMES DAILY (route: oral) Med Classific ation: Hematolog ical Agents levothyroxi ne 50 mcg tablet 10-29 00:00: 00 Yes [id number] THYROID 1 tablet DAILY 1 tablet DAILY (route: oral) Med Classific ation: Endocrine acetaminoph en 325 mg capsule 10-31 00:00: 00 Yes [id number] PAIN 2 capsule EVERY 6 HOURS 2 capsule EVERY 6 HOURS (route: oral) Med Classific ation: Analgesic , Anti-infl ammatory or Antipyret ic ketorolac 0.5 % eye drops 10-31 00:00: 00 Yes [id number] EYE ITCHING 1 drops DAILY 1 drops DAILY (route: ophthalmic (eye)) Med Classific ation: Ophthalmi c Agents latanoprost (PF) 0.005 % eye drops 10-31 00:00: 00 Yes [id number] EY 1 drops BEDTIME 1 drops BEDTIME (route: ophthalmic (eye)) Med Classific ation: Ophthalmi c Agents meclizine 12.5 mg tablet 10-31 00:00: 00 Yes [id number] DIZZYNESS 1 tablet 3 TIMES DAILY 1 tablet 3 TIMES DAILY (route: oral) Med Classific ation: Gastroint estinal Therapy Agents metoprolol succinate ER 25 mg tablet,exte nded release 24 hr 10-31 00:00: 00 Yes [id number] HTN 1 tablet DAILY 1 tablet DAILY (route: oral) Med Classific ation: Cardiovas cular Therapy Agents Senna with Docusate Sodium 8.6 mg-50 mg tablet 10-31 00:00: 00 Yes [id number] constipatio n 2 tablet 2 TIMES DAILY 2 tablet 2 TIMES DAILY (route: oral) Med Classific ation: Gastroint estinal Therapy Agents Xarelto 20 mg tablet 11-14 00:00: 00 Yes [id number] ANTICOAGULA TION Per instruc tions DAILY Per [...] End Date/Time Encounter Type Admission Type Attending [facility] Care Department Encounter ID Discharge Date Discharge Status Discharge Condition Discharge Reason Percent Goals Met 2022-10-31 00:00:00 2022-12-28 00:00:00 Outpatient NEW ADMISSION HARISH THOMPSON [facility] [id number] 2022-12-28 00:00:00 DISCHARGE TO HOME OR SELF CARE INDEPENDEN T IN THE COMMUNITY HH OR PAL- GOALS MET 97.96
--- OUTSIDE RECORDS SUMMARY | 2024-09-02 13:59 | XMS_ITS | Clinical Summary ---
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 (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 OF INHALED STEROIDS Active 09-23 [...] 10-29 00:00: 00 11-14 23:59 :00 No [id number] AFIB 1 tablet 2 TIMES DAILY 1 tablet 2 TIMES DAILY (route: oral) Med Classific ation: Hematolog ical Agents levothyroxi ne 50 mcg tablet 10-29 00:00: 00 Yes [id number] THYROID 1 tablet DAILY 1 tablet DAILY (route: oral) Med Classific ation: Endocrine acetaminoph en 325 mg capsule 10-31 00:00: 00 Yes [id number] PAIN 2 capsule EVERY 6 HOURS 2 capsule EVERY 6 HOURS (route: oral) Med Classific ation: Analgesic , Anti-infl ammatory or Antipyret ic ketorolac 0.5 % eye drops 10-31 00:00: 00 Yes [id number] EYE ITCHING 1 drops DAILY 1 drops DAILY (route: ophthalmic (eye)) Med Classific ation: Ophthalmi c Agents latanoprost (PF) 0.005 % eye drops 10-31 00:00: 00 Yes [id number] EY 1 drops BEDTIME 1 drops BEDTIME (route: ophthalmic (eye)) Med Classific ation: Ophthalmi c Agents meclizine 12.5 mg tablet 10-31 00:00: 00 Yes [id number] DIZZYNESS 1 tablet 3 TIMES DAILY 1 tablet 3 TIMES DAILY (route: oral) Med Classific ation: Gastroint estinal Therapy Agents metoprolol succinate ER 25 mg tablet,exte nded release 24 hr 10-31 00:00: 00 Yes [id number] HTN 1 tablet DAILY 1 tablet DAILY (route: oral) Med Classific ation: Cardiovas cular Therapy Agents Senna with Docusate Sodium 8.6 mg-50 mg tablet 10-31 00:00: 00 Yes [id number] constipatio n 2 tablet 2 TIMES DAILY 2 tablet 2 TIMES DAILY (route: oral) Med Classific ation: Gastroint estinal Therapy Agents Xarelto 20 mg tablet 11-14 00:00: 00 Yes [id number] ANTICOAGULA TION Per instruc tions DAILY Per [...] End Date/Time Encounter Type Admission Type Attending [facility] Care Department Encounter ID Discharge Date Discharge Status Discharge Condition Discharge Reason Percent Goals Met 2022-10-31 00:00:00 2022-12-28 00:00:00 Outpatient NEW ADMISSION HARISH THOMPSON [facility] [id number] 2022-12-28 00:00:00 DISCHARGE TO HOME OR SELF CARE INDEPENDEN T IN THE COMM[facility]ITY HH OR PAL- GOALS MET 97.96
== END 2024-08-31 14:11 | disposition home or self-care (01) ==
PROVIDERS: Physician Assistant Medical; Emergency Provider Emergency Medicine; PCP Family Medicine
DX: I48.0 Paroxysmal atrial fibrillation (principal); I49.9 Cardiac arrhythmia, unspecified; R00.2 Palpitations; I48.91 Unspecified atrial fibrillation; Z79.01 Long term (current) use of anticoagulants; Z79.899 Other long term (current) drug therapy
CPT/HCPCS: 36415; 71045; 80048; 80076; 83690; 84484; 85025; 85610; 93005; 96374; 99285; J2704

== ENCOUNTER → 2024-08-31 08:47 | Outpatient (BNV) | payer MEDICARE, SELFPAY | PROVIDERS: Emergency Provider Emergency Medicine; PCP Family Medicine; Visit Provider Internal Medicine Cardiovascular Disease | DX: I48.91 Unspecified atrial fibrillation (principal) | CPT/HCPCS: 93010 ==

== ENCOUNTER 2024-09-10 09:17 | Outpatient (AMB) | payer MEDICARE, SELFPAY ==
--- NOTE | 2024-09-10 09:23 | AM.OFFVISNUR ---
Intake Visit Reasons: EKG Allergies No Known Allergies Allergy (Verified 08/31/24 09:01) Nursing Note pt is here for nurse visit with ekg pt is currently taking amiodarone 200 mg PO BID pt feels sob and palpitations ekg left on LOOM STARTER Jesus desk for review Office Procedures EKG [id number], Complete
--- OUTSIDE RECORDS SUMMARY | 2024-09-10 09:23 | XMS_ITS | Clinical Summary ---
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 ANALGESIC Active 09-23 00:00: 00 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 (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 OF 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 STEROIDS Active 09-23 [...] 10-29 00:00: 00 11-14 23:59 :00 No [id number] AFIB 1 tablet 2 TIMES DAILY 1 tablet 2 TIMES DAILY (route: oral) Med Classific ation: Hematolog ical Agents levothyroxi ne 50 mcg tablet 10-29 00:00: 00 Yes [id number] THYROID 1 tablet DAILY 1 tablet DAILY (route: oral) Med Classific ation: Endocrine acetaminoph en 325 mg capsule 10-31 00:00: 00 Yes [id number] PAIN 2 capsule EVERY 6 HOURS 2 capsule EVERY 6 HOURS (route: oral) Med Classific ation: Analgesic , Anti-infl ammatory or Antipyret ic ketorolac 0.5 % eye drops 10-31 00:00: 00 Yes [id number] EYE ITCHING 1 drops DAILY 1 drops DAILY (route: ophthalmic (eye)) Med Classific ation: Ophthalmi c Agents latanoprost (PF) 0.005 % eye drops 10-31 00:00: 00 Yes [id number] EY 1 drops BEDTIME 1 drops BEDTIME (route: ophthalmic (eye)) Med Classific ation: Ophthalmi c Agents meclizine 12.5 mg tablet 10-31 00:00: 00 Yes [id number] DIZZYNESS 1 tablet 3 TIMES DAILY 1 tablet 3 TIMES DAILY (route: oral) Med Classific ation: Gastroint estinal Therapy Agents metoprolol succinate ER 25 mg tablet,exte nded release 24 hr 10-31 00:00: 00 Yes [id number] HTN 1 tablet DAILY 1 tablet DAILY (route: oral) Med Classific ation: Cardiovas cular Therapy Agents Senna with Docusate Sodium 8.6 mg-50 mg tablet 10-31 00:00: 00 Yes [id number] constipatio n 2 tablet 2 TIMES DAILY 2 tablet 2 TIMES DAILY (route: oral) Med Classific ation: Gastroint estinal Therapy Agents Xarelto 20 mg tablet 11-14 00:00: 00 Yes [id number] ANTICOAGULA TION Per instruc tions DAILY Per [...] 2022-12-28 00:00:00 Outpatient NEW ADMISSION HARISH THOMPSON [facility] [id number] 2022-12-28 00:00:00 DISCHARGE TO HOME OR SELF CARE INDEPENDEN T IN THE COMM[facility]ITY HH OR PAL- GOALS MET 97.96
--- OUTSIDE RECORDS SUMMARY | 2024-09-10 09:23 | XMS_ITS | Clinical Summary ---
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 Active 09-23 [...] 10-29 00:00: 00 11-14 23:59 :00 No [id number] AFIB 1 tablet 2 TIMES DAILY 1 tablet 2 TIMES DAILY (route: oral) Med Classific ation: Hematolog ical Agents levothyroxi ne 50 mcg tablet 10-29 00:00: 00 Yes [id number] THYROID 1 tablet DAILY 1 tablet DAILY (route: oral) Med Classific ation: Endocrine acetaminoph en 325 mg capsule 10-31 00:00: 00 Yes [id number] PAIN 2 capsule EVERY 6 HOURS 2 capsule EVERY 6 HOURS (route: oral) Med Classific ation: Analgesic , Anti-infl ammatory or Antipyret ic ketorolac 0.5 % eye drops 10-31 00:00: 00 Yes [id number] EYE ITCHING 1 drops DAILY 1 drops DAILY (route: ophthalmic (eye)) Med Classific ation: Ophthalmi c Agents latanoprost (PF) 0.005 % eye drops 10-31 00:00: 00 Yes [id number] EY 1 drops BEDTIME 1 drops BEDTIME (route: ophthalmic (eye)) Med Classific ation: Ophthalmi c Agents meclizine 12.5 mg tablet 10-31 00:00: 00 Yes [id number] DIZZYNESS 1 tablet 3 TIMES DAILY 1 tablet 3 TIMES DAILY (route: oral) Med Classific ation: Gastroint estinal Therapy Agents metoprolol succinate ER 25 mg tablet,exte nded release 24 hr 10-31 00:00: 00 Yes [id number] HTN 1 tablet DAILY 1 tablet DAILY (route: oral) Med Classific ation: Cardiovas cular Therapy Agents Senna with Docusate Sodium 8.6 mg-50 mg tablet 10-31 00:00: 00 Yes [id number] constipatio n 2 tablet 2 TIMES DAILY 2 tablet 2 TIMES DAILY (route: oral) Med Classific ation: Gastroint estinal Therapy Agents Xarelto 20 mg tablet 11-14 00:00: 00 Yes [id number] ANTICOAGULA TION Per instruc tions DAILY Per [...] End Date/Time Encounter Type Admission Type Attending [facility] Care Department Encounter ID Discharge Date Discharge Status Discharge Condition Discharge Reason Percent Goals Met 2022-10-31 00:00:00 2022-12-28 00:00:00 Outpatient NEW ADMISSION HARISH THOMPSON [facility] [id number] 2022-12-28 00:00:00 DISCHARGE TO HOME OR SELF CARE INDEPENDEN T IN THE COMM[facility] HH OR PAL- GOALS MET 97.96
== END 2024-09-10 09:54 | disposition home or self-care (01) ==
PROVIDERS: PCP Family Medicine; Visit Provider Internal Medicine Cardiovascular Disease
DX: I48.0 Paroxysmal atrial fibrillation (principal)
CPT/HCPCS: 93010

== ENCOUNTER → 2024-09-10 09:17 | Outpatient (BNVA) | payer MEDICARE, SELFPAY | PROVIDERS: PCP Family Medicine; Visit Provider Internal Medicine Cardiovascular Disease | DX: Z13.6 Encounter for screening for cardiovascular disorders (principal) | CPT/HCPCS: 93005 ==

== ENCOUNTER 2024-10-01 09:17 | Outpatient (AMB) | payer MEDICARE, SELFPAY ==
--- OUTSIDE RECORDS SUMMARY | 2024-10-01 09:33 | XMS_ITS | Clinical Summary ---
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 OF OPIATE ANALGESIC Active 09-23 00:00: 00 HALFWAY (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 OF INHALED STEROIDS Active 09-23 [...] 10-29 00:00: 00 11-14 23:59 :00 No [id number] AFIB 1 tablet 2 TIMES DAILY 1 tablet 2 TIMES DAILY (route: oral) Med Classific ation: Hematolog ical Agents levothyroxi ne 50 mcg tablet 10-29 00:00: 00 Yes [id number] THYROID 1 tablet DAILY 1 tablet DAILY (route: oral) Med Classific ation: Endocrine acetaminoph en 325 mg capsule 10-31 00:00: 00 Yes [id number] PAIN 2 capsule EVERY 6 HOURS 2 capsule EVERY 6 HOURS (route: oral) Med Classific ation: Analgesic , Anti-infl ammatory or Antipyret ic ketorolac 0.5 % eye drops 10-31 00:00: 00 Yes [id number] EYE ITCHING 1 drops DAILY 1 drops DAILY (route: ophthalmic (eye)) Med Classific ation: Ophthalmi c Agents latanoprost (PF) 0.005 % eye drops 10-31 00:00: 00 Yes [id number] EY 1 drops BEDTIME 1 drops BEDTIME (route: ophthalmic (eye)) Med Classific ation: Ophthalmi c Agents meclizine 12.5 mg tablet 10-31 00:00: 00 Yes [id number] DIZZYNESS 1 tablet 3 TIMES DAILY 1 tablet 3 TIMES DAILY (route: oral) Med Classific ation: Gastroint estinal Therapy Agents metoprolol succinate ER 25 mg tablet,exte nded release 24 hr 10-31 00:00: 00 Yes [id number] HTN 1 tablet DAILY 1 tablet DAILY (route: oral) Med Classific ation: Cardiovas cular Therapy Agents Senna with Docusate Sodium 8.6 mg-50 mg tablet 10-31 00:00: 00 Yes [id number] constipatio n 2 tablet 2 TIMES DAILY 2 tablet 2 TIMES DAILY (route: oral) Med Classific ation: Gastroint estinal Therapy Agents Xarelto 20 mg tablet 11-14 00:00: 00 Yes [id number] ANTICOAGULA TION Per instruc tions DAILY Per [...] End Date/Time Encounter Type Admission Type Attending [facility] Care Department Encounter ID Discharge Date Discharge Status Discharge Condition Discharge Reason Percent Goals Met 2022-10-31 00:00:00 2022-12-28 00:00:00 Outpatient NEW ADMISSION HARISH THOMPSON [facility] [id number] 2022-12-28 00:00:00 DISCHARGE TO HOME OR SELF CARE INDEPENDEN T IN THE COMM[facility]ITY HH OR PAL- GOALS MET 97.96
--- OUTSIDE RECORDS SUMMARY | 2024-10-01 09:34 | XMS_ITS | Clinical Summary ---
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 (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 OF INHALED STEROIDS Active 09-23 [...] 10-29 00:00: 00 11-14 23:59 :00 No [id number] AFIB 1 tablet 2 TIMES DAILY 1 tablet 2 TIMES DAILY (route: oral) Med Classific ation: Hematolog ical Agents levothyroxi ne 50 mcg tablet 10-29 00:00: 00 Yes [id number] THYROID 1 tablet DAILY 1 tablet DAILY (route: oral) Med Classific ation: Endocrine acetaminoph en 325 mg capsule 10-31 00:00: 00 Yes [id number] PAIN 2 capsule EVERY 6 HOURS 2 capsule EVERY 6 HOURS (route: oral) Med Classific ation: Analgesic , Anti-infl ammatory or Antipyret ic ketorolac 0.5 % eye drops 10-31 00:00: 00 Yes [id number] EYE ITCHING 1 drops DAILY 1 drops DAILY (route: ophthalmic (eye)) Med Classific ation: Ophthalmi c Agents latanoprost (PF) 0.005 % eye drops 10-31 00:00: 00 Yes [id number] EY 1 drops BEDTIME 1 drops BEDTIME (route: ophthalmic (eye)) Med Classific ation: Ophthalmi c Agents meclizine 12.5 mg tablet 10-31 00:00: 00 Yes [id number] DIZZYNESS 1 tablet 3 TIMES DAILY 1 tablet 3 TIMES DAILY (route: oral) Med Classific ation: Gastroint estinal Therapy Agents metoprolol succinate ER 25 mg tablet,exte nded release 24 hr 10-31 00:00: 00 Yes [id number] HTN 1 tablet DAILY 1 tablet DAILY (route: oral) Med Classific ation: Cardiovas cular Therapy Agents Senna with Docusate Sodium 8.6 mg-50 mg tablet 10-31 00:00: 00 Yes [id number] constipatio n 2 tablet 2 TIMES DAILY 2 tablet 2 TIMES DAILY (route: oral) Med Classific ation: Gastroint estinal Therapy Agents Xarelto 20 mg tablet 11-14 00:00: 00 Yes [id number] ANTICOAGULA TION Per instruc tions DAILY Per [...] End Date/Time Encounter Type Admission Type Attending [facility] Care Department Encounter ID Discharge Date Discharge Status Discharge Condition Discharge Reason Percent Goals Met 2022-10-31 00:00:00 2022-12-28 00:00:00 Outpatient NEW ADMISSION HARISH THOMPSON [facility] [id number] 2022-12-28 00:00:00 DISCHARGE TO HOME OR SELF CARE INDEPENDEN T IN THE COMM[facility] HH OR PAL- GOALS MET 97.96
[2024-10-01 09:44] VITALS: BP 160/62; PULSE 60; BMI 23.2
--- NOTE | 2024-10-01 09:44 | MHC.OFFVIS ---
Vital Signs 10/01/24 09:44 Height 5 ft Weight 119 lb 0.794 oz BMI 23.2 BP 160/62 H Blood Pressure Location Lt brachial Position Sitting Pulse 60 Pulse Source Monitor Intake Visit Reasons: f/u post cardiovertion with EKG Barrow Worker Required: No Allergies No Known Allergies Allergy (Verified 10/01/24 09:50) Medication List - Last Reconciled 10/01/24 by Winnie Stein NP-C amlodipine 2.5 mg PO DAILY calcium carbonate (Calcium 600) 600 mg PO DAILY cholecalciferol (vitamin D3) (Vitamin D3) 50 mcg PO DAILY ketorolac 0.5% 1 drp ophthalmic-Left DAILY latanoprost 0.005% 1 drp ophthalmic (eye) BEDTIME levothyroxine 50 mcg PO DAILY@0600 tzmuxery-[id number]-vit K-lut 8 mg iron-400 mcg-50 mcg (Centrum Silver Women) 1 tab PO DAILY rivaroxaban (Xarelto) 20 mg PO DAILY HPI HPI f/u post cardiovertion with EKG: Details: Perla is an 84-year-old female with past medical history of hypertension, paroxysmal atrial fibrillation who was recently seen in the [facility] ED with shortness of breath, recurrent AFib and had cardioversion done. She had been on Multaq which was changed to amiodarone. She now presents for follow-up. Today she reports she has been doing well since her hospital discharge on 08/31/24. She has not had any known recurrent atrial fibrillation. No shortness of breath, PND, orthopnea or edema. No heart palpitations, lightheadedness, presyncope, syncope. No chest discomfort at rest or with activity. She is taking her meds as directed. She ran out of amiodarone yesterday. She has been taking her blood thinner without interruption. 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 [facility] Medical History Paroxysmal atrial fibrillation Hypertension Atrial flutter Hypertension Hypothyroid Surgical History Hx of cholecystectomy Status post-operative repair of hip fracture Social History Household Members: None Housing: House Do you presently have visiting nurse or other home services: No Alcohol intake: never Comment: n/a Patient Tobacco Use Status: Never used Tobacco Second Hand Smoke Exposure: No service: No Review of Systems Const All systems reviewed & are unremarkable except as noted in HPI and below ENT Denies dizziness Card Denies chest pain, Denies chest pain at rest, Denies chest pain with activity, Denies rapid heart rate, Denies pedal edema, Denies edema, Denies leg edema, Denies lightheadedness, Denies palpitations, Denies dyspnea, Denies dyspnea on exertion and Denies orthopnea Resp Denies cough, Denies dyspnea and Denies dyspnea on exertion GI Denies hematochezia and Denies change in stool character Musc Denies abnormal gait, Denies limited range of motion, Denies muscle cramps, Denies muscle weakness, Denies numbness, Denies radiating pain into limb, Denies stiffness and Denies tingling Neuro Denies abnormal gait, Denies dizziness, Denies numbness and Denies tingling Endo Denies palpitations Physical Exam Vital Signs: Last Vital Signs Pulse 60 10/01/24 09:44 BP 160/62 H 10/01/24 09:44 BMI result Body Mass Index 23.2 Const General: cooperative, healthy appearing, comfortable and no acute distress Orientation/consciousness: patient oriented x3 Neck Neck: Yes normal visual inspection and Yes no JVD Resp Effort & Inspection: normal respiratory effort Auscultation: clear to auscultation bilaterally, no crackles, no rales, no rhonchi and no wheezes Cardio Jugular venous distension: no JVD Rate: regular rate Rhythm: regular rhythm Heart sounds: S1 normal heart sound present, S2 normal heart sound present, no murmurs and no rubs Neuro General: patient oriented x3 Extrem General: Yes normal to inspection, No no pedal edema and No calf tenderness Psych Appearance: grossly normal Mental Status: mental status grossly normal Speech and movement: Normal speech and movement present Office Procedures EKG Details: Today, read by me, Sinus rhythm rate 60, Qtc 446ms [id number], Complete Assessment & Plan Assessment & Plan (1) Paroxysmal atrial fibrillation: Code(s): I48.0 - Paroxysmal atrial fibrillation Category: Medical Plan: History of paroxysmal atrial fibrillation which had been suppressed with use of Multaq. Last echocardiogram done 11/12/2023 showed EF 50-55%, grade 1 diastolic dysfunction, mildly dilated left atrium, normal valves. She had been doing well and then she developed shortness of breath and lightheadedness which prompted ER visit. She was found to have AFib RVR. She had been compliant with her medications including Xarelto. She did undergo a cardioversion in the emergency room with successful conversion to sinus rhythm. Her Multaq was stopped and she was started on amiodarone loading dose. She has done well since that time with no recurrent symptoms. EKG done today shows sinus rhythm, rate 60, QTC 446 milliseconds. She ran out of amiodarone yesterday. Will send a refill for amiodarone 200 mg once daily. Continue Xarelto without interruption. No bleeding issues reported. Prior to next visit will check labs to assess amiodarone tolerance, CMP and TSH. She has symptoms with AFib and can tell if she has recurrent episodes. Emergency care if needed. Cardiology follow-up in this office 3 months, sooner if needed. (2) Hypertension: Code(s): I10 - Essential (primary) hypertension Category: Medical Plan: History of hypertension. Blood pressure mildly elevated today at 160/62. Recheck done by me 158/64. She is on amlodipine 2.5 mg daily. She tells me she had been on more antihypertensive agents in the past however then had issues with low blood pressure and lightheadedness. She currently feels well with no symptoms. Instructed to periodically monitor her blood pressure at home and call if her systolic reading is running greater than 150s. At which time her amlodipine dose can be increased to 5 mg daily. Reviewed low-salt diet. (3) Hospital discharge follow-up: Code(s): Z09 - Encounter for follow-up examination after completed treatment for conditions other than malignant neoplasm Category: Medical Plan: As above (4) History of cardioversion: Comment: 08/31/24 in ED Code(s): Z92.89 - Personal history of other medical treatment Category: Medical Plan: As above Plan Time spent on chart review, documentation, interview assessment Orders: Orders TSH reflex Free T4 Today I48.0 - Paroxysmal atrial fibrillation Comprehensive Met. Panel Today I48.0 - Paroxysmal atrial fibrillation Medications: New amiodarone 200 mg PO DAILY 90 tabs 1RF Coding Level of Care Code Est Pt Level 4 (43153) Diagnoses Paroxysmal atrial fibrillation I48.0 Hypertension I10 Hospital discharge follow-up Z09 History of cardioversion Z92.89 CPT Codes EKG - CPT: 11194-[id number], Complete ([id number]) Time Spent (min) 28
== END 2024-10-01 10:38 | disposition home or self-care (01) ==
PROVIDERS: PCP Family Medicine; Visit Provider Nurse Practitioner Family
DX: I48.0 Paroxysmal atrial fibrillation (principal); I10 Essential (primary) hypertension; Z09 Encounter for follow-up examination after completed treatment for conditions other than malignant neoplasm; Z92.89 Personal history of other medical treatment
CPT/HCPCS: 93010; 99214

== ENCOUNTER → 2024-10-01 09:17 | Outpatient (BNVA) | payer MEDICARE, SELFPAY | PROVIDERS: PCP Family Medicine; Visit Provider Nurse Practitioner Family | DX: Z09 Encounter for follow-up examination after completed treatment for conditions other than malignant neoplasm (principal); I48.0 Paroxysmal atrial fibrillation; I10 Essential (primary) hypertension; Z92.89 Personal history of other medical treatment | CPT/HCPCS: 93005; 99212 ==

== ENCOUNTER 2024-10-19 09:44 | Outpatient (REF) | payer MEDICARE, SELFPAY ==
[2024-10-19 11:40] LABS: Alanine Aminotransferase 14 U/L (0-31); Albumin Level 4.2 g/dL (3.5-5.0); Alkaline Phosphatase 70 U/L (39-117); Anion Gap 11 (12-20); Aspartate Amino Transferase 30 U/L (5-31); Bilirubin Total 0.5 mg/dL (0.0-1.0); Blood Urea Nitrogen 19 mg/dL (9-16); Calcium 8.8 mg/dL (8.4-10.2); Carbon Dioxide 27 mmol/L (22-29); Chloride 98 mmol/L (96-108); Estimated Glomerular Filt Rate 47; Glucose Random 100 mg/dL (60-115); Potassium 4.2 mmol/L (3.3-5.1); Sodium 132 mmol/L (135-145); TSH reflex Free T4 3.91 uIU/mL (0.32-4.0)
== END 2024-10-19 09:45 | disposition home or self-care (01) ==
LOC: HO.LAB 09:44
PROVIDERS: PCP Family Medicine; Visit Provider Nurse Practitioner Family
DX: I48.0 Paroxysmal atrial fibrillation (principal)
CPT/HCPCS: 36415; 80053; 84443

== ENCOUNTER → 2024-10-22 08:54 | Outpatient (BNVA) | payer MEDICARE, SELFPAY | PROVIDERS: PCP Family Medicine; Visit Provider Nurse Practitioner Family ==

== ENCOUNTER 2024-11-26 12:06 | Outpatient (REF) | payer MEDICARE, SELFPAY ==
[2024-11-26 15:20] LABS: Alanine Aminotransferase 16 U/L (0-31); Albumin Level 4.2 g/dL (3.5-5.0); Alkaline Phosphatase 69 U/L (39-117); Anion Gap 11 (12-20); Aspartate Amino Transferase 24 U/L (5-31); Bilirubin Total 0.5 mg/dL (0.0-1.0); Blood Urea Nitrogen 28 mg/dL (9-16); Calcium 9.2 mg/dL (8.4-10.2); Carbon Dioxide 28 mmol/L (22-29); Chloride 96 mmol/L (96-108); Estimated Glomerular Filt Rate 49; Glucose Random 86 mg/dL (60-115); Potassium 4.3 mmol/L (3.3-5.1); Sodium 131 mmol/L (135-145); Total Protein 7.8 g/dL (6.5-8.0)
[2024-11-26 15:39] LABS: TSH reflex Free T4 3.18 uIU/mL (0.32-4.0)
== END 2024-11-26 12:07 | disposition home or self-care (01) ==
LOC: HO.LAB 12:06
PROVIDERS: PCP Family Medicine; Visit Provider Nurse Practitioner Family
DX: I48.0 Paroxysmal atrial fibrillation (principal)
CPT/HCPCS: 36415; 80053; 84443

== ENCOUNTER 2024-12-31 09:48 | Outpatient (AMB) | payer MEDICARE, SELFPAY ==
--- NOTE | 2024-12-31 09:48 | MHC.OFFVIS ---
Vital Signs 12/31/24 09:49 Height 5 ft Weight 121 lb 4.068 oz BMI 23.7 BP 120/80 Blood Pressure Location Lt brachial Position Sitting Pulse 61 Intake Visit Reasons: 3m follow up Intake Note: 3 month follow-up with ekg c/o sob, off balance, constipation and believes its the amiodarone Wiring Technician Required: No Allergies No Known Allergies Allergy (Verified 10/01/24 09:50) Medication List - Last Reconciled 12/31/24 by Sergio Maldonado MD amiodarone 200 mg PO DAILY amlodipine 2.5 mg PO DAILY calcium carbonate (Calcium 600) 600 mg PO DAILY cholecalciferol (vitamin D3) (Vitamin D3) 50 mcg PO DAILY ketorolac 0.5% 1 drp ophthalmic-Left DAILY latanoprost 0.005% 1 drp ophthalmic (eye) BEDTIME levothyroxine 50 mcg PO DAILY@0600 qaqaspkp-acg-xudi-FA-vit K-lut 8 mg iron-400 mcg-50 mcg (Centrum Silver Women) 1 tab PO DAILY rivaroxaban (Xarelto) 20 mg PO DAILY HPI Comments Details: Lily comes for follow-up. She is very upset since been started on amiodarone she was having lot different side effects. She complains of imbalance. She also complains of increased constipation. She also complains of increasing shortness of breath. Although she has no orthopnea, PND, leg edema. Denies any prolonged palpitation irregular heartbeat or recurrence of atrial fibrillation. No bleeding issues or neurologic events. Blood pressures been generally well controlled. No exertional chest pain. She says all these symptoms are related to amiodarone therapy. However salt the symptoms do remind about when she had hypothyroidism. COUNTS INCLUDE 234 BEDS AT THE [facility] Medical History Paroxysmal atrial fibrillation Hypertension Atrial flutter Hypertension Hypothyroid Surgical History Hx of cholecystectomy Status post-operative repair of hip fracture Social History Household Members: None Housing: House Do you presently have visiting nurse or other home services: No Alcohol intake: never Comment: n/a Patient Tobacco Use Status: Never used Tobacco Second Hand Smoke Exposure: No service: No Review of Systems Const Denies chills, Denies fatigue, Denies fever(s), Denies frequent falls, Denies weakness, Denies weight gain and Denies weight loss ENT Denies dizziness Card Denies chest pain, Denies leg edema, Denies lightheadedness, Denies palpitations, Denies dyspnea, Denies dyspnea on exertion, Denies orthopnea and Denies other (loss of consciousness) Resp Denies cough, Denies dyspnea and Denies dyspnea on exertion GI Denies hematochezia and Denies change in stool character Musc Denies abnormal gait, Denies muscle weakness, Denies numbness, Denies radiating pain into limb and Denies tingling Neuro Denies abnormal gait, Denies dizziness, Denies frequent falls, Denies numbness, Denies tingling and Denies weakness Endo Denies fatigue and Denies palpitations Physical Exam Vital Signs: Last Vital Signs Pulse 61 12/31/24 09:49 BP 120/80 12/31/24 09:49 BMI result Body Mass Index 23.7 Const General: cooperative, comfortable, no acute distress, alert and awake Nutritional Appearance: thin Orientation/consciousness: patient oriented x3 Limitations: no limitations Neck Neck: Yes trachea midline, Yes supple and Yes no JVD Resp Effort & Inspection: normal respiratory effort Auscultation: clear to auscultation bilaterally Cardio Jugular venous distension: no JVD Rate: regular rate Rhythm: regular rhythm Heart sounds: S1 normal heart sound present, S2 normal heart sound present, no click, no gallops, no murmurs and no rubs GI Auscultation: normal bowel sounds Skin General skin exam: no rashes or lesions noted Neuro General: patient oriented x3 and no focal motor deficits Extrem General: Yes no clubbing, cyanosis or edema Office Procedures EKG Details: EKG shows normal sinus rhythm normal EKG at 62 beats per minute [id number], Complete Assessment & Plan Assessment & Plan (1) Paroxysmal atrial fibrillation: Code(s): I48.0 - Paroxysmal atrial fibrillation Category: Medical Plan: Paroxysmal atrial fibrillation suppressed on amiodarone therapy although having potential side effects to amiodarone therapy. She was having some neurologic symptoms as GI symptoms. However we discussed about rhythm management. We discussed about various different strategies. Given that she is done with rhythm control approach will continue amiodarone but at a lower dose of 100 mg daily. We would pursue to see if her symptoms improved. Will also check for thyroid function. Saw the symptoms also suggestive of possibly heart failure although she has no clinical fluid overload. Will check BNP. Will also check for CBC and renal function. We discussed other strategies including ablation and alternative antiarrhythmic drugs. For now continue oral anticoagulation therapy, on Xarelto. Has not tolerated Eliquis therapy in the past. Will update echocardiogram to assess for any significant abnormality in her cardiac structure and function. Also obtain Holter monitor in about a month's time to see if she was significant bradycardia (2) Hypertension: Code(s): I10 - Essential (primary) hypertension Category: Medical Plan: Hypertension which is currently well optimized advised to monitor blood pressure at home maintain a log. Goal blood pressure less than 130/84. Continue current amlodipine therapy. Low-salt diet was discussed. Maintain activity level as tolerated. Will follow up in the clinic in 2 months time, sooner p.r.n.. Thank you for allowing me to partake in her care Orders: Orders Complete Blood Count no Diff Today I48.0 - Paroxysmal atrial fibrillation B Type Natriuretic Peptide Today I48.0 - Paroxysmal atrial fibrillation CA echo transthoracic complete Today I48.0 - Paroxysmal atrial fibrillation ECG 3 day holter monitor 4 Weeks I48.0 - Paroxysmal atrial fibrillation Basic Metabolic Panel Today I48.0 - Paroxysmal atrial fibrillation TSH reflex Free T4 Today I48.0 - Paroxysmal atrial fibrillation XR chest 2V Today I48.0 - Paroxysmal atrial fibrillation Medications: Changed From amiodarone 200 mg PO DAILY 90 tabs 1RF I48.0 - Paroxysmal atrial fibrillation To amiodarone 100 mg (1/2 x 200 mg) PO DAILY 90 tabs 1RF I48.0 - Paroxysmal atrial fibrillation Coding Level of Care Code Est Pt Level 4 (34576) Complex EM visit Add On G2211 Diagnoses Paroxysmal atrial fibrillation I48.0 Hypertension I10 CPT Codes EKG - CPT: 05983-[id number], Complete ([id number])
[2024-12-31 09:49] VITALS: BP 120/80; PULSE 61; BMI 23.7
== END 2024-12-31 11:41 | disposition home or self-care (01) ==
LOC: HO.HCS 09:48
PROVIDERS: PCP Family Medicine; Visit Provider Internal Medicine Cardiovascular Disease
DX: I48.0 Paroxysmal atrial fibrillation (principal); I10 Essential (primary) hypertension
CPT/HCPCS: 93010; 99214; G2211

== ENCOUNTER 2024-12-31 09:48 | Outpatient (REF) | payer MEDICARE, SELFPAY ==
--- NOTE | ~2024-12-31 | XR_ITS ---
CLINICAL HISTORY: I48.0 - Paroxysmal atrial fibrillation 2 view chest x-ray. Comparison: CR/SR - XR CHEST 1V - 08/31/24 09:49 EST CR/SR - XR CHEST 1V - 10/01/23 11:01 EST Findings: Normal lung volumes. Lungs are clear. No pneumothorax or pleural effusion. Heart size normal. No passive venous congestion. No midline shift or tracheal deviation. Mild wedge compression fracture lower thoracic vertebra with exaggerated kyphosis. Impression: 1. No acute cardiopulmonary disease. This document has been electronically signed by: Tad Strong MD on 01/01/2025 09:06:20
[2024-12-31 12:45] LABS: Hematocrit 30.9 % (37.0-47.0); Hemoglobin 9.7 g/dl (12.0-16.0); Mean Corpuscular HGB Conc 31.4 g/dl (31.0-35.0); Mean Corpuscular Hemoglobin 19.7 pg (27.0-33.0); Mean Corpuscular Volume 62.8 fL (80.0-98.0); Mean Platelet Volume 10.8 fL (9.4-12.3); Platelet Count 269 X10*3/uL (160-400); Red Blood Count 4.92 X10*6/uL (4.20-5.50); Red Cell Distribution Width 17.4 % (11.0-16.0); White Blood Count 6.4 X10*3/uL (4.8-10.8)
[2024-12-31 13:28] LABS: Anion Gap 12 (12-20); B Type Natriuretic Peptide 124 pg/mL (<100); Blood Urea Nitrogen 39 mg/dL (9-16); Calcium 9.4 mg/dL (8.4-10.2); Carbon Dioxide 28 mmol/L (22-29); Chloride 98 mmol/L (96-108); Estimated Glomerular Filt Rate 41; Glucose Random 103 mg/dL (60-115); Potassium 4.4 mmol/L (3.3-5.1); Sodium 134 mmol/L (135-145)
[2024-12-31 13:46] LABS: TSH reflex Free T4 3.32 uIU/mL (0.32-4.0)
== END 2024-12-31 09:49 | disposition home or self-care (01) ==
LOC: HO.XRAY 09:48
PROVIDERS: PCP Family Medicine; Visit Provider Internal Medicine Cardiovascular Disease
DX: I48.0 Paroxysmal atrial fibrillation (principal); I10 Essential (primary) hypertension
CPT/HCPCS: 36415; 71046; 80048; 83880; 84443; 85027; 93005; 99212

== ENCOUNTER → 2024-12-31 11:38 | Outpatient (BNV) | payer MEDICARE, SELFPAY | PROVIDERS: PCP Family Medicine; Visit Provider Radiology Diagnostic Radiology | DX: I48.0 Paroxysmal atrial fibrillation (principal) | CPT/HCPCS: 71046 ==

== ENCOUNTER → 2025-02-22 09:42 | Outpatient (REF) | payer MEDICARE, SELFPAY ==
--- NOTE | 2025-02-22 09:44 | CA_ITS ---
Transthoracic Echocardiogram Patient (Last, First, Middle): Lily Rodriguez, Gender: Female Date of : 1940 Age: 84 Procedure Date: 02/22/2025 Procedure Type: Transthoracic Echocardiogram Location: OP Height: 152.4 cm Weight: 54.89 kg BSA: 1.51 m2 Heart Rate: bpm BP: 120 / 80 mmHg Metal Mine Inspector: ENA Referring MD: Sergio Maldonado MD Symptoms: I48.0 - Paroxysmal atrial fibrillation Study Quality: Adequate ECG Rhythm: Sinus Conclusions: - The left ventricular systolic function is low normal. The calculated ejection fraction is 54% by biplane method. - The left atrium is moderately dilated. - There is mild aortic valve regurgitation. - There is mild mitral valve regurgitation. Findings Left Ventricle Normal left ventricular cavity size. There is normal left ventricular wall thickness. The left ventricular systolic function is low normal. The calculated ejection fraction is 54% by biplane method. There is no evidence of regional wall motion abnormalities. Diastolic function is normal for age. Right Ventricle Mildly increased right ventricular cavity size. There is normal right ventricular systolic function. Atria The left atrium is moderately dilated. The right atrium is normal in size. Aortic Valve There is a normal trileaflet aortic valve. There is mild calcification of the aortic valve. There is no aortic valve stenosis. There is mild aortic valve regurgitation. Mitral Valve The mitral valve appears normal. There is mild mitral valve regurgitation. There is no mitral valve stenosis. Pulmonic Valve The pulmonic valve is likely normal. Tricuspid Valve There is trace tricuspid valve regurgitation. There is no evidence of pulmonary hypertension. Great Vessels The asc aorta and aortic arch are normal in size. Venous The inferior vena cava is normal in size and collapses greater than 50% with inspiration. Pericardium/Pleural There is no evidence of pericardial effusion. Prior Study Comparison No significant change compared to prior study dated: 11/12/2023. Measurements 2D Linear Measurements IVSd: 0.75 0.6-0.9/0.6-1.0 cm LVIDd: 4.63 3.9-5.3/4.2-5.9 cm LVIDd Index: 3.07 2.4-3.2/2.2-3.1 cm/m2 LVIDs: 3.48 2.0-3.6 cm LVPWd: 1.02 0.7-1.1 cm LA Diam: 3.60 2.7-3.8/3.0-4.0 cm LAIDs Index: 2.38 1.5-2.3 cm/m2 LV Mass: 169.28 67-162/88-224 g LV Mass Index: 112.11 43-95/49-115 g/m2 LVOT Diam: 2.10 3.0+(-)1.3 cm 2D Systolic Function EF 4C: 51.70 >55% EF 2C: 57.20 >55% EF BiP: 53.60 >55% Mitral Valve MV Pk E: 0.69 MV PK A: 0.48 MV Decel Time: 215.00 E/A: 1.40 E'Lateral: 8.16 E'Medial: 7.07 E/E' Med: 9.80 E/E' Lat: 8.50 PHT: 63.00 MVA PHT: 3.49 Decel [place]: 3.23 Aortic Valve AoV Pk Wong: 1.11 AoV Mn Wong: 0.73 AoV VTI: 0.27 AoV Pk Grad: 5.00 Aov Mn Grad: 2.00 SUDHIR Cont.VTI: 2.42 LVOT LVOT Pk Wong: 0.76 LVOT Mn Wong: 0.55 LVOT VTI: 0.19 LVOT Pk Grad: 2.00 LVOT Mn Grad: 1.00 LVOT Diam: 2.10 LVOT Area: 3.46 Diastolic Function MV Pk E: 0.69 MV Pk A: 0.48 E/A: 1.40 E'Medial: 7.07 E/E' Med: 9.80 E' Laterial: 8.16 E/E' Lat: 8.50 Right Ventricle TAPSE (mm): 26.10 TVS' Wong: 12.80 Tricuspid Valve TR Pk Wong: 2.02 TR Pk Grad: 16.00 RA Press: 3.00 RVSP: 19.00 Great Vessels Aorta Sinus of Valsalva: 3.17 2.0-3.[address] [place]: 2.83 1.7-3.4 cm Ao Asc: 3.60 2.1-3.4 cm Ao Arch: 3.20 Updated in Other Vendor System with Status of Final Wilmer Ly MD electronically signed on 02/22/2025 3:24:47 PM with status of Final
== END ==
LOC: HO.CARD 09:42
PROVIDERS: PCP Family Medicine; Visit Provider Internal Medicine Cardiovascular Disease
DX: I48.0 Paroxysmal atrial fibrillation (principal)
CPT/HCPCS: 93242; 93306

== ENCOUNTER → 2025-02-22 09:44 | Outpatient (BNV) | payer MEDICARE, SELFPAY | PROVIDERS: PCP Family Medicine; Visit Provider Internal Medicine | DX: I35.1 Nonrheumatic aortic (valve) insufficiency (principal); I34.0 Nonrheumatic mitral (valve) insufficiency | CPT/HCPCS: 93306 ==

== ENCOUNTER 2025-04-07 10:16 | Outpatient (AMB) | payer MEDICARE, SELFPAY ==
[2025-04-07 10:29] VITALS: BP 104/62; PULSE 65; BMI 22.8
--- NOTE | 2025-04-07 10:29 | A.OFFVIS_ITS ---
Vital Signs 04/07/25 10:29 Height 5 ft Weight 116 lb 13.52 oz BMI 22.8 BP 104/62 Blood Pressure Location Lt brachial Position Sitting Pulse 65 Intake Visit Reasons: 2 mth fu/labs/x-ray etc Intake Note: 2 month follow-up labs, xray, ekg Policy Issue Clerk Required: No Allergies No Known Allergies Allergy (Verified 10/01/24 09:50) Medication List - Last Reconciled 04/07/25 by Sergio Maldonado MD amiodarone 100 mg PO DAILY amlodipine 2.5 mg PO DAILY calcium carbonate (Calcium 600) 600 mg PO DAILY cholecalciferol (vitamin D3) (Vitamin D3) 50 mcg PO DAILY ketorolac 0.5% 1 drp ophthalmic-Left DAILY latanoprost 0.005% 1 drp ophthalmic (eye) BEDTIME levothyroxine 50 mcg PO DAILY@0600 dkngswbb-jir-exrc-FA-vit K-lut 8 mg iron-400 mcg-50 mcg (Centrum Silver Women) 1 tab PO DAILY rivaroxaban (Xarelto) 20 mg PO DAILY HPI Comments Details: Lily comes for follow up in 2 months. She has been tolerating low-dose of amiodarone much improved neurologic side effect and balance issues. She still gets dizzy but she thinks now that this is not related to amiodarone therapy. She does not have any much GI side effects. Chest x-ray from December 2 volts within normal limits. She denies any prolonged palpitation irregular heartbeat. Still complains of exertional shortness of breath. No orthopnea, PND, leg edema. Blood pressure is generally well controlled. No bleeding issues or neurologic events noted of the last time in December when we had done blood work she had noted to be anemic with hemoglobin of 9.5. She says that she has been anemic for awhile and has thalassemia trait although she is not clear [facility] Medical History Paroxysmal atrial fibrillation Hypertension Atrial flutter Hypertension Hypothyroid Surgical History Hx of cholecystectomy Status post-operative repair of hip fracture Social History Household Members: None Housing: House Do you presently have visiting nurse or other home services: No Alcohol intake: never Comment: n/a Patient Tobacco Use Status: Never used Tobacco Second Hand Smoke Exposure: No service: No Review of Systems Const Denies chills, Denies fatigue, Denies fever(s), Denies frequent falls, Denies weakness, Denies weight gain and Denies weight loss ENT Denies dizziness Card Denies chest pain, Denies leg edema, Denies lightheadedness, Denies palpitations, Denies dyspnea, Denies dyspnea on exertion, Denies orthopnea and Denies other (loss of consciousness) Resp Denies cough, Denies dyspnea and Denies dyspnea on exertion GI Denies hematochezia and Denies change in stool character Musc Denies abnormal gait, Denies muscle weakness, Denies numbness, Denies radiating pain into limb and Denies tingling Neuro Denies abnormal gait, Denies dizziness, Denies frequent falls, Denies numbness, Denies tingling and Denies weakness Endo Denies fatigue and Denies palpitations Physical Exam Vital Signs: Last Vital Signs Pulse 65 04/07/25 10:29 BP 104/62 04/07/25 10:29 BMI result Body Mass Index 22.8 Const General: cooperative, comfortable, no acute distress, alert and awake Nutritional Appearance: thin Orientation/consciousness: patient oriented x3 Limitations: no limitations Neck Neck: Yes trachea midline, Yes supple and Yes no JVD Resp Effort & Inspection: normal respiratory effort Auscultation: clear to auscultation bilaterally Cardio Jugular venous distension: no JVD Rate: regular rate Rhythm: regular rhythm Heart sounds: S1 normal heart sound present, S2 normal heart sound present, no click, no gallops, no murmurs and no rubs GI Auscultation: normal bowel sounds Skin General skin exam: no rashes or lesions noted Neuro General: patient oriented x3 and no focal motor deficits Extrem General: Yes no clubbing, cyanosis or edema Office Procedures EKG Details: EKG shows normal sinus rhythm normal EKG [id number], Complete Assessment & Plan Assessment & Plan (1) Paroxysmal atrial fibrillation: Code(s): I48.0 - Paroxysmal atrial fibrillation Category: Medical Plan: Paroxysmal atrial fibrillation which has remained suppressed on low-dose amiodarone therapy which she is tolerating well. At current point time she continues to have exertional shortness of breath which most likely is probably related to chronotropic incompetence also with anemia and aging. She has no overt signs of heart failure. Will continue with rhythm control approach. Continue low-dose amiodarone therapy. Continue Xarelto. She was noted to be anemic and would like to follow up CBC to make sure she is not getting more anemic and may need alternative strategy to oral anticoagulant therapy. If she has further anemic will refer to Hematology for further evaluation. Advised to monitor pulse on a regular basis. Avoidance of stimulants was discussed. She understands and agrees. (2) Hypertension: Code(s): I10 - Essential (primary) hypertension Category: Medical Plan: Hypertension which is currently well optimized advised to monitor blood pressure at home maintain a log. Goal blood pressure less than 130/84. Low-salt diet was discussed. Continue with current therapy. Follow up in the clinic in 6 months time, sooner p.r.n.. Thank you for allowing me to partake in her care Orders: Orders B Type Natriuretic Peptide Today I48.0 - Paroxysmal atrial fibrillation Basic Metabolic Panel Today I48.0 - Paroxysmal atrial fibrillation Complete Blood Count no Diff Today I48.0 - Paroxysmal atrial fibrillation Coding Level of Care Code Est Pt Level 4 (70596) Complex EM visit Add On G2211 Diagnoses Paroxysmal atrial fibrillation I48.0 Hypertension I10 CPT Codes EKG - CPT: 36851-[id number], Complete ([id number])
== END 2025-04-07 11:05 | disposition home or self-care (01) ==
LOC: HO.HCS 10:17
PROVIDERS: PCP Family Medicine; Visit Provider Internal Medicine Cardiovascular Disease
DX: I48.0 Paroxysmal atrial fibrillation (principal); I10 Essential (primary) hypertension
CPT/HCPCS: 93010; 99214; G2211

== ENCOUNTER 2025-04-07 10:16 | Outpatient (REF) | payer MEDICARE, SELFPAY ==
[2025-04-07 11:31] LABS: Hematocrit 31.3 % (37.0-47.0); Hemoglobin 10.0 g/dl (12.0-16.0); Mean Corpuscular HGB Conc 31.9 g/dl (31.0-35.0); Mean Corpuscular Hemoglobin 19.8 pg (27.0-33.0); NRBC Abs Auto 0.000 X10*3/uL (0.0-0.012); NRBC Pct Auto 0.0 /100WBC (0.0-0.2); Platelet Count 260 X10*3/uL (160-400); Red Blood Count 5.06 X10*6/uL (4.20-5.50); White Blood Count 6.6 X10*3/uL (4.8-10.8)
[2025-04-07 11:32] LABS: Mean Corpuscular Volume 61.9 fL (80.0-98.0)
[2025-04-07 12:05] LABS: Anion Gap 10 (12-20); Blood Urea Nitrogen 33 mg/dL (9-16); Calcium 9.3 mg/dL (8.4-10.2); Carbon Dioxide 30 mmol/L (22-29); Chloride 97 mmol/L (96-108); Estimated Glomerular Filt Rate 40; Potassium 4.4 mmol/L (3.3-5.1); Sodium 133 mmol/L (135-145)
[2025-04-07 12:10] LABS: B Type Natriuretic Peptide 88 pg/mL (<100)
== END 2025-04-07 10:17 | disposition home or self-care (01) ==
LOC: HO.LAB 10:16
PROVIDERS: PCP Family Medicine; Visit Provider Internal Medicine Cardiovascular Disease
DX: I48.0 Paroxysmal atrial fibrillation (principal); I10 Essential (primary) hypertension; R06.02 Shortness of breath; Z79.3 Long term (current) use of hormonal contraceptives; Z79.1 Long term (current) use of non-steroidal anti-inflammatories (NSAID); Z79.01 Long term (current) use of anticoagulants; Z79.899 Other long term (current) drug therapy
CPT/HCPCS: 36415; 80048; 83880; 85027; 93005; 99212